=== PATIENT | female | born 1955 ===

== ENCOUNTER → 2016-09-09 | Outpatient (CLI) | payer BC ==
--- NOTE | 2016-09-10 13:57 | MM ---
Reason for exam: screening (asymptomatic). Last mammogram was performed 4 years and 2 months ago. History: Patient is postmenopausal and is nulliparous. Taking estrogen for 9 years 6 months beginning at age 53. Taking progesterone for 9 years 6 months beginning at age 53. Physical Findings: A clinical breast exam by your physician is recommended on an annual basis and results should be correlated with mammographic findings. MG Screening Mammo w CAD Bilateral CC and MLO view(s) were taken. Prior study comparison: June 28, 2012, bilateral digital screening mammo w/CAD. May 02, 2010, bilateral digital screening mammogram. The breast tissue is heterogeneously dense. This may lower the sensitivity of mammography. No significant changes when compared with prior studies. ASSESSMENT: Negative, BI-RAD 1 RECOMMENDATION: Routine screening mammogram of both breasts in 1 year.
== END | disposition home or self-care (01) ==
LOC: RADMAMWWP 16:00
PROVIDERS: ATTEND Obstetrics & Gynecology
DX: Z12.31 Encounter for screening mammogram for malignant neoplasm of breast (principal)

== ENCOUNTER 2019-10-07 02:16 | Emergency (ER) | payer BC ==
[2019-10-07 02:23] VITALS: BP 137/73; PULSE 67; RESP 16; TEMP 98.7
[2019-10-07] MEDS ORDERED: MORPHINE SULFATE 4 MG/ML SYRINGE IV STA (02:30)
[2019-10-07] MEDS ORDERED: PANTOPRAZOLE 40 MG/10 ML VIAL IVP STA (02:30)
[2019-10-07] MEDS ORDERED: SODIUM CHLORIDE 0.9% 1,000 ML IV STA (02:30)
[2019-10-07] MEDS ORDERED: ONDANSETRON 4 MG/2 ML VIAL IVP STA (02:30)
--- NOTE | 2019-10-07 02:30 | ED ---
Abdominal Pain HPI - General Chief Complaint: Abdominal Pain Stated Complaint: Abdominal Pain, Nausea Time Seen by Provider: 10/07/19 02:22 Source: patient, EMS, RN notes reviewed, old records reviewed Mode of arrival: EMS Limitations: no limitations - History of Present Illness Initial Comments: This is a 64-year-old female DF for evaluation. Patient admits to severe suprapubic abdominal pain periumbilical abdominal pain although improved currently mild nausea no vomiting no fevers. She denies any dysuria or change in bowel habits. Not taking medication for pain. The symptoms woke her up from sleep she felt very bloated with the severe abdominal pain but states the pain appears to be improved currently here in the ER not requiring anything currently MD Complaint: abdominal pain -: hour(s) Location: diffuse, suprapubic Radiation: suprapubic Migration to: suprapubic Severity: severe Severity scale (1-10): 6 Quality: cramping, aching Consistency: constant Improves With: nothing Worsens With: nothing Context: possible food poisoning Associated Symptoms: nausea, diarrhea - Related Data Previous Rx's Medication Instructions Recorded Nitrofurantoin Monohyd/M-Cryst 100 mg PO Q12HR #10 cap 10/07/19 [Macrobid] Allergies Allergy/AdvReac Type Severity Reaction Status Date / Time codeine AdvReac Vomiting Verified 10/07/19 02:26 Review of Systems ROS Statement: Those systems with pertinent positive or pertinent negative responses have been documented in the HPI. ROS Other: All systems not noted in ROS Statement are negative. Past Medical History Past Medical History: No Reported History History of Any Multi-Drug Resistant Organisms: None Reported Past Surgical History: Appendectomy, Hysterectomy Smoking Status: Never smoker Past Alcohol Use History: Rare Past Drug Use History: None Reported General Exam Limitations: no limitations General appearance: alert, in no apparent distress Head exam: Present: atraumatic, normocephalic, normal inspection Eye exam: Present: normal appearance, PERRL, EOMI. Absent: scleral icterus, conjunctival injection, periorbital swelling ENT exam: Present: normal exam, mucous membranes moist Neck exam: Present: normal inspection. Absent: tenderness, meningismus, lymphadenopathy Respiratory exam: Present: normal lung sounds bilaterally. Absent: respiratory distress, wheezes, rales, rhonchi, stridor Cardiovascular Exam: Present: regular rate, normal rhythm, normal heart sounds. Absent: systolic murmur, diastolic murmur, rubs, gallop, clicks GI/Abdominal exam: Present: soft, normal bowel sounds. Absent: distended, tenderness, guarding, rebound, rigid Extremities exam: Present: normal inspection, full ROM, normal capillary refill. Absent: tenderness, pedal edema, joint swelling, calf tenderness Back exam: Present: normal inspection Neurological exam: Present: alert, oriented X3, CN II-XII intact Psychiatric exam: Present: normal affect, normal mood Skin exam: Present: warm, dry, intact, normal color. Absent: rash Course Vital Signs 10/07/19 10/07/19 02:18 04:19 Temperature 98.7 F 98.7 F Pulse Rate 67 67 Respiratory 16 16 Rate Blood Pressure 137/73 137/73 O2 Sat by Pulse 99 99 Oximetry - Reevaluation(s) Reevaluation #1: Medical record is reviewed Patient remains with pain control Patient explained results, urinary tract infection, given antibiotics here in the ER which she tolerated oral he Medical Decision Making - Medical Decision Making 64 female DF for evaluation of abdominal pain CT is negative lab work is normal aside from urinary tract infection will treat with antibiotics which she is t olerating patient can be discharged home - Lab Data Result diagrams: 10/07/19 02:30 10/07/19 02:30 Lab Results 10/07/19 10/07/19 10/07/19 Range/Units 02:30 02:30 02:30 WBC 4.7 (3.8-10.6) k/uL RBC 4.52 (3.80-5.40) m/uL Hgb 13.9 (11.4-16.0) gm/dL Hct 42.6 (34.0-46.0) % MCV 94.3 (80.0-100.0) fL MCH 30.9 (25.0-35.0) pg MCHC 32.8 (31.0-37.0) g/dL RDW 12.8 (11.5-15.5) % Plt Count 189 (150-450) k/uL Neutrophils % 51 % Lymphocytes % 39 % Monocytes % 5 % Eosinophils % 2 % Basophils % 1 % Neutrophils # 2.4 (1.3-7.7) k/uL Lymphocytes # 1.9 (1.0-4.8) k/uL Monocytes # 0.3 (0-1.0) k/uL Eosinophils # 0.1 (0-0.7) k/uL Basophils # 0.0 (0-0.2) k/uL Sodium 137 (137-145) mmol/L Potassium 3.8 (3.5-5.1) mmol/L Chloride 107 (98-107) mmol/L Carbon Dioxide 26 (22-30) mmol/L Anion Gap 4 mmol/L BUN 25 H (7-17) mg/dL Creatinine 0.64 (0.52-1.04) mg/dL Est GFR (CKD-EPI)AfAm >90 (>60 ml/min/1.73 sqM) Est GFR (CKD-EPI)NonAf >90 (>60 ml/min/1.73 sqM) Glucose 102 H (74-99) mg/dL Plasma Lactic Acid Jamie 0.8 (0.7-2.0) mmol/L Calcium 8.9 (8.4-10.2) mg/dL Total Bilirubin 0.2 (0.2-1.3) mg/dL AST 24 (14-36) U/L ALT 15 (4-34) U/L Alkaline Phosphatase 53 (38-126) U/L Creatine Kinase 52 (30-135) U/L Troponin I (0.000-0.034) ng/mL Total Protein 6.8 (6.3-8.2) g/dL Albumin 4.2 (3.5-5.0) g/dL Amylase 85 (30-110) U/L Lipase 219 (23-300) U/L Urine Color Urine Appearance (Clear) Urine pH (5.0-8.0) Ur Specific [place] (1.001-1.035) Urine Protein (Negative) Urine Glucose (UA) (Negative) Urine Ketones (Negative) Urine Blood (Negative) Urine Nitrite (Negative) Urine Bilirubin (Negative) Urine Urobilinogen (<2.0) mg/dL Ur Leukocyte Esterase (Negative) Urine RBC (0-5) /hpf Urine WBC (0-5) /hpf Ur Squamous Epith Cells (0-4) /hpf Urine Bacteria (None) /hpf Urine Mucus (None) /hpf 10/07/19 10/07/19 Range/Units 02:30 03:37 WBC (3.8-10.6) k/uL RBC (3.80-5.40) m/uL Hgb (11.4-16.0) gm/dL Hct (34.0-46.0) % MCV (80.0-100.0) fL MCH (25.0-35.0) pg MCHC (31.0-37.0) g/dL RDW (11.5-15.5) % Plt Count (150-450) k/uL Neutrophils % % Lymphocytes % % Monocytes % % Eosinophils % % Basophils % % Neutrophils # (1.3-7.7) k/uL Lymphocytes # (1.0-4.8) k/uL Monocytes # (0-1.0) k/uL Eosinophils # (0-0.7) k/uL Basophils # (0-0.2) k/uL Sodium (137-145) mmol/L Potassium (3.5-5.1) mmol/L Chloride (98-107) mmol/L Carbon Dioxide (22-30) mmol/L Anion Gap mmol/L BUN (7-17) mg/dL Creatinine (0.52-1.04) mg/dL Est GFR (CKD-EPI)AfAm (>60 ml/min/1.73 sqM) Est GFR (CKD-EPI)NonAf (>60 ml/min/1.73 sqM) Glucose (74-99) mg/dL Plasma Lactic Acid Jamie (0.7-2.0) mmol/L Calcium (8.4-10.2) mg/dL Total Bilirubin (0.2-1.3) mg/dL AST (14-36) U/L ALT (4-34) U/L Alkaline Phosphatase (38-126) U/L Creatine Kinase (30-135) U/L Troponin I <0.012 (0.000-0.034) ng/mL Total Protein (6.3-8.2) g/dL Albumin (3.5-5.0) g/dL Amylase (30-110) U/L Lipase (23-300) U/L Urine Color Yellow Urine Appearance Cloudy H (Clear) Urine pH 6.0 (5.0-8.0) Ur Specific [place] 1.050 H (1.001-1.035) Urine Protein Trace H (Negative) Urine Glucose (UA) Negative (Negative) Urine Ketones Negative (Negative) Urine Blood Negative (Negative) Urine Nitrite Negative (Negative) Urine Bilirubin Negative (Negative) Urine Urobilinogen <2.0 (<2.0) mg/dL Ur Leukocyte Esterase Large H (Negative) Urine RBC 13 H (0-5) /hpf Urine WBC 124 H (0-5) /hpf Ur Squamous Epith Cells 17 H (0-4) /hpf Urine Bacteria Rare H (None) /hpf Urine Mucus Rare H (None) /hpf - EKG Data -: EKG Interpreted by Me (EKG shows sinus rhythm of 63 63, GA 140, QRS 80, QTC 407) - Radiology Data Radiology results: report reviewed (CT abdomen and pelvis is negative for acute disease), image reviewed Disposition Clinical Impression: Abdominal pain, UTI (urinary tract infection) Disposition: HOME SELF-CARE Condition: Good Instructions (If sedation given, give patient instructions): Urinary Tract Infection in Women (ED), Abdominal Pain (ED) Prescriptions: Nitrofurantoin Monohyd/M-Cryst [Macrobid] 100 mg PO Q12HR #10 cap Is patient prescribed a controlled substance at d/c from ED?: No Referrals: Guillermo Villanueva MD [Primary Care Provider] - 1-2 days
[2019-10-07 02:58] LABS: Basophils % (A) 1 %; Eosinophils # (A) 0.1 k/uL (0-0.7); Eosinophils % (A) 2 %; HCT 42.6 % (34.0-46.0); HGB 13.9 gm/dL (11.4-16.0); Lymphocytes # (A) 1.9 k/uL (1.0-4.8); Lymphocytes % (A) 39 %; MCH 30.9 pg (25.0-35.0); MCHC 32.8 g/dL (31.0-37.0); MCV 94.3 fL (80.0-100.0); Mean Platelet Volume 7.1; Monocytes # (A) 0.3 k/uL (0-1.0); Monocytes % (A) 5 %; Neutrophils # (A) 2.4 k/uL (1.3-7.7); Neutrophils % (A) 51 %; Platelet Count 189 k/uL (150-450); RBC 4.52 m/uL (3.80-5.40); RDW 12.8 % (11.5-15.5); WBC 4.7 k/uL (3.8-10.6)
[2019-10-07 03:08] LABS: ALT 15 U/L (4-34); AST 24 U/L (14-36); African American GFR (CKD) >90 (>60 ml/min/1.73 sqM); Albumin 4.2 g/dL (3.5-5.0); Alkaline Phosphatase 53 U/L (38-126); Amylase 85 U/L (30-110); Anion Gap 4 mmol/L; Blood Urea Nitrogen 25 mg/dL (7-17); Calcium 8.9 mg/dL (8.4-10.2); Carbon Dioxide 26 mmol/L (22-30); Chloride 107 mmol/L (98-107); Creatine Kinase 52 U/L (30-135); Glucose 102 mg/dL (74-99); Non-African American GFR(CKD) >90 (>60 ml/min/1.73 sqM); Potassium 3.8 mmol/L (3.5-5.1); Sodium 137 mmol/L (137-145); Total Bilirubin 0.2 mg/dL (0.2-1.3); Total Protein 6.8 g/dL (6.3-8.2)
--- NOTE | 2019-10-07 03:17 | CT ---
EXAMINATION TYPE: CT abdomen pelvis w con DATE OF EXAM: 10/07/2019 COMPARISON: None HISTORY: Lower abdominal pain CT DLP: mGycm Automated exposure control for dose reduction was used. CONTRAST: The contrast was Isovue 100 mL IV. FINDINGS: There is minimal subsegmental atelectasis at the right posterior lung base. Heart size is fairly norm al. There is no pericardial effusion. There is no pleural effusion. There is some heterogeneous enhan cement that measures 3 cm in the posterior right lobe of the liver consistent with hemangioma. The bi le ducts are not dilated. Gallbladder appears normal. Stomach is intact. Spleen appears normal. There is no pancreatic mass. There is no adrenal mass. Kidneys show satisfactory contrast opacification. There is no hydronephrosi s. Ureters are not dilated. There is no retroperitoneal adenopathy. Bladder distends smoothly. There is no evidence of a pelvic mass. There is 3.3 cm cyst in the pelvis on the left side that is probably ovarian cyst. There is no inguinal hernia. There is no mesenteric edema. There is no ascites or free air. There is no evidence of a bowel obstru ction. Appendix is not definitely seen. There is no sign of thickened appendix. There is some retaine d fecal material in the large bowel. Lumbar vertebra have normal alignment. Disc spaces are normal. Bony pelvis is intact. IMPRESSION: Mild constipation. Hemangioma in the posterior right lobe of the liver. Appendix not definitely seen.
[2019-10-07 03:49] LABS: Appearance,Urine Cloudy (Clear); Bacteria,Urine Rare /hpf; Bilirubin,Urine Negative (Negative); Blood,Urine Negative (Negative); Color,Urine Yellow; Glucose,Urine (UA) Negative (Negative); Ketones,Urine Negative (Negative); Leukocyte Esterase,Urine Large (Negative); Mucus,Urine Rare /hpf; Nitrite,Urine Negative (Negative); Protein,Urine Trace (Negative); RBC,Urine 13 /hpf (0-5); Squamous Epithelial Cell,Urine 17 /hpf (0-4); Urobilinogen,Urine <2.0 mg/dL (<2.0); WBC,Urine 124 /hpf (0-5)
[2019-10-07] MEDS ORDERED: NITROFURANTOIN MONOHYD/M-CRYST 100 MG CAP PO STA (04:22)
== END 2019-10-07 04:27 | disposition home or self-care (01) ==
LOC: EC 02:16
DX: N39.0 Urinary tract infection, site not specified (principal); Z88.5 Allergy status to narcotic agent
CPT/HCPCS: 36415; 80053; 82150; 82550; 83605; 83690; 84484; 85025; 81001; 87086; 74177; 99285; 96374; 96375; 96361; J2405; C9113; Q9967; 87077; 87186

== ENCOUNTER 2020-08-08 10:45 | Emergency (ER) | payer BC ==
[2020-08-08 10:50] VITALS: TEMP 98
[2020-08-08] MEDS ORDERED: HYDROmorphone 0.5 MG/0.5 ML SYRINGE IVP STA (11:20)
[2020-08-08] MEDS ORDERED: SODIUM CHLORIDE 0.9% 1,000 ML IV STA (11:20)
[2020-08-08] MEDS ORDERED: ONDANSETRON 4 MG/2 ML VIAL IVP STA (11:20)
[2020-08-08] MEDS ORDERED: SODIUM CHLORIDE 0.9% 500 ML 500 ML IV STA (11:20)
--- NOTE | 2020-08-08 11:34 | ED ---
Abdominal Pain HPI - General Source: patient, family Mode of arrival: wheelchair Limitations: no limitations <Radha Trejo - Last Filed: 08/08/20 15:16> <Carol Barfield - Last Filed: 08/11/20 20:17> - General Chief Complaint: Abdominal Pain Stated Complaint: Abd pain Time Seen by Provider: 08/08/20 11:04 - History of Present Illness Initial Comments: 65 year feel presents today for chief complaint of right upper quadrant pain since midnight. Patient states she has had right upper quadrant abdominal pain that radiates towards the epigastric region. She states that she has some nausea/dry heaving. Denies chest pressure. Denies radiation to the back. Denies dyspnea, pain with deep inspiration, jaw or arm pain.. Charlene dark or bloody stools. Patient states the area hurts to touch and causes her to double over. Patient denies diarrhea. Denies fevers. Admits to general malaise Patihoman states she saw her pCP today who sent her here to r/o gallbladder disease. Patient on arrival does not appear in distress. Afebrile. (Radha Trejo) - Related Data Home Medications Medication Instructions Recorded Confirmed Latanoprost/Pf [Latanoprost 0.005% 1 drop LEFT EYE HS 08/08/20 08/08/20 Eye Drop] Sodium Chloride 5% Ophth Soln 1 drops BOTH EYES HS 08/08/20 08/08/20 [Simona 128] Previous Rx's Medication Instructions Recorded Ondansetron Odt [Zofran Odt] 4 mg PO Q8HR PRN 7 Days #21 tab 08/08/20 Pantoprazole Sodium [Protonix] 40 mg PO DAILY 7 Days #7 tablet. 08/08/20 Sucralfate [Carafate] 1 gm PO AC-TID 7 Days #21 tablet 08/08/20 Allergies Allergy/AdvReac Type Severity Reaction Status Date / Time codeine AdvReac Vomiting Verified 08/08/20 11:57 Review of Systems ROS Other: All systems not noted in ROS Statement are negative. <Radha Trejo - Last Filed: 08/08/20 15:16> ROS Other: All systems not noted in ROS Statement are negative. <Carol Barfield - Last Filed: 08/11/20 20:17> ROS Statement: Those systems with pertinent positive or pertinent negative responses have been documented in the HPI. Past Medical History Past Medical History: No Reported History History of Any Multi-Drug Resistant Organisms: None Reported Past Surgical History: Appendectomy, Hysterectomy Smoking Status: Never smoker Past Alcohol Use History: Rare Past Drug Use History: None Reported <Radha Trejo - Last Filed: 08/08/20 15:16> General Exam Limitations: no limitations <Radha Trejo - Last Filed: 08/08/20 15:16> - General Exam Comments Initial Comments: General: The patient is awake and alert, in no distress Eye: +3 mm pupils are equal, round and reactive to light, extra-ocular movements are intact. No nystagmus. There is normal conjunctiva bilaterally. No signs of icterus. Ears, nose, mouth and throat: There are moist mucous membranes and no oral lesions. Neck: The neck is supple, there is no tenderness or JVD. Cardiovascular: There is a regular rate and rhythm. No murmur, rub or gallop is appreciated. Respiratory: Lungs are clear to auscultation, respirations are non-labored, breath sounds are equal. No wheezes, stridor, rales, or rhonchi. Gastrointestinal: Soft, non-distended, ruq/epigastric tenderness, (-) murphys sign. abdomen without masses or organomegaly noted. There is no rebound or guarding present. Musculoskeletal: Normal ROM, no tenderness. Strength 5/5. Sensation intact. Radial pulses equal bilaterally 2+. Neurological: A&O x 3. CN II-XII intact grossly, There are no obvious motor or sensory deficits. Coordination appears grossly intact. Speech is normal. Skin: Skin is warm and dry and no rashes or lesions are noted. Psychiatric: Cooperative, appropriate mood & affect, normal judgment. (Radha Trejo) Course Vital Signs 08/08/20 08/08/20 10:48 15:03 Temperature 98.0 F Pulse Rate 57 L 62 Respiratory 16 18 Rate Blood Pressure 120/78 124/80 O2 Sat by Pulse 100 98 Oximetry Medical Decision Making - Lab Data Result diagrams: 08/08/20 11:52 08/08/20 11:52 <Radha Terjo - Last Filed: 08/08/20 15:16> - Lab Data Result diagrams: 08/08/20 11:52 08/08/20 11:52 <Carol Barfield - Last Filed: 08/11/20 20:17> - Medical Decision Making Labs/HgB stable. US no gallstones. hemnagioma noted. CT findings most cosistent wtih gastritis/enteritis/cannto r/o PUD. pt givne protonix/GI cocktail. Patient does not appear peritoneal. Pain improved after medications. patient findings on CT/US were dicussing including the left ovarian cyst and hemangioma and i recommend f/u with [facility] and GI for both respectively. Patient agreeable to discharge with GI f/u and return for worsening pain. Dr. Barfield agreeable to care plan. (Radha Trejo) I was available for consultation in the emergency department. The history and p hysical exam were done by the midlevel provider. I was consulted for this patients care. I reviewed the case with the midlevel provider and based on their presentation of the patient, I agree with the assessment, medical decision making and plan of care as documented. Chart was dictated using [employer] dictation software. Attempts were made to correct any dictation errors however some typographical errors may persist. Patient was seen during a national state of emergency due to the Covid-19 fuller demic. (Carol Barfield) - Lab Data Lab Results 08/08/20 08/08/20 08/08/20 Range/Units 11:52 11:52 11:52 WBC 9.0 (3.8-10.6) k/uL RBC 4.72 (3.80-5.40) m/uL Hgb 14.6 (11.4-16.0) gm/dL Hct 44.1 (34.0-46.0) % MCV 93.5 (80.0-100.0) fL MCH 31.0 (25.0-35.0) pg MCHC 33.2 (31.0-37.0) g/dL RDW 13.4 (11.5-15.5) % Plt Count 290 (150-450) k/uL MPV 7.4 Neutrophils % 88 % Lymphocytes % 9 % Monocytes % 2 % Eosinophils % 0 % Basophils % 0 % Neutrophils # 7.9 H (1.3-7.7) k/uL Lymphocytes # 0.8 L (1.0-4.8) k/uL Monocytes # 0.2 (0-1.0) k/uL Eosinophils # 0.0 (0-0.7) k/uL Basophils # 0.0 (0-0.2) k/uL Sodium 137 (137-145) mmol/L Potassium 5.0 (3.5-5.1) mmol/L Chloride 102 (98-107) mmol/L Carbon Dioxide 22 (22-30) mmol/L Anion Gap 13 mmol/L BUN 18 H (7-17) mg/dL Creatinine 0.59 (0.52-1.04) mg/dL Est GFR (CKD-EPI)AfAm >90 (>60 ml/min/1.73 sqM) Est GFR (CKD-EPI)NonAf >90 (>60 ml/min/1.73 sqM) Glucose 108 H (74-99) mg/dL Calcium 10.1 (8.4-10.2) mg/dL Total Bilirubin 1.3 (0.2-1.3) mg/dL AST 58 H (14-36) U/L ALT 38 H (4-34) U/L Alkaline Phosphatase 67 (38-126) U/L Troponin I (0.000-0.034) ng/mL Total Protein 8.8 H (6.3-8.2) g/dL Albumin 5.3 H (3.5-5.0) g/dL Amylase 96 (30-110) U/L Lipase 138 (23-300) U/L Urine Color Yellow Urine Appearance Clear (Clear) Urine pH 5.5 (5.0-8.0) Ur Specific [place] 1.038 H (1.001-1.035) Urine Protein 1+ H (Negative) Urine Glucose (UA) Negative (Negative) Urine Ketones 4+ H (Negative) Urine Blood Negative (Negative) Urine Nitrite Negative (Negative) Urine Bilirubin Negative (Negative) Urine Urobilinogen <2.0 (<2.0) mg/dL Ur Leukocyte Esterase Negative (Negative) Urine RBC 4 (0-5) /hpf Urine WBC 2 (0-5) /hpf Ur Squamous Epith Cells 1 (0-4) /hpf Urine Mucus Many H (None) /hpf 02/18/21 Range/Units 11:52 WBC (3.8-10.6) k/uL RBC (3.80-5.40) m/uL Hgb (11.4-16.0) gm/dL Hct (34.0-46.0) % MCV (80.0-100.0) fL MCH (25.0-35.0) pg MCHC (31.0-37.0) g/dL RDW (11.5-15.5) % Plt Count (150-450) k/uL MPV Neutrophils % % Lymphocytes % % Monocytes % % Eosinophils % % Basophils % % Neutrophils # (1.3-7.7) k/uL Lymphocytes # (1.0-4.8) k/uL Monocytes # (0-1.0) k/uL Eosinophils # (0-0.7) k/uL Basophils # (0-0.2) k/uL Sodium (137-145) mmol/L Potassium (3.5-5.1) mmol/L Chloride (98-107) mmol/L Carbon Dioxide (22-30) mmol/L Anion Gap mmol/L BUN (7-17) mg/dL Creatinine (0.52-1.04) mg/dL Est GFR (CKD-EPI)AfAm (>60 ml/min/1.73 sqM) Est GFR (CKD-EPI)NonAf (>60 ml/min/1.73 sqM) Glucose (74-99) mg/dL Calcium (8.4-10.2) mg/dL Total Bilirubin (0.2-1.3) mg/dL AST (14-36) U/L ALT (4-34) U/L Alkaline Phosphatase (38-126) U/L Troponin I <0.012 (0.000-0.034) ng/mL Total Protein (6.3-8.2) g/dL Albumin (3.5-5.0) g/dL Amylase (30-110) U/L Lipase (23-300) U/L Urine Color Urine Appearance (Clear) Urine pH (5.0-8.0) Ur Specific [place] (1.001-1.035) Urine Protein (Negative) Urine Glucose (UA) (Negative) Urine Ketones (Negative) Urine Blood (Negative) Urine Nitrite (Negative) Urine Bilirubin (Negative) Urine Urobilinogen (<2.0) mg/dL Ur Leukocyte Esterase (Negative) Urine RBC (0-5) /hpf Urine WBC (0-5) /hpf Ur Squamous Epith Cells (0-4) /hpf Urine Mucus (None) /hpf Disposition Is patient prescribed a controlled substance at d/c from ED?: No Time of Disposition: 13:58 <Radha Trejo - Last Filed: 08/08/20 15:16> <Carol Barfield Jacinto - Last Filed: 08/11/20 20:17> Clinical Impression: Peptic ulcer disease, Enteritis Disposition: HOME SELF-CARE Condition: Good Instructions (If sedation given, give patient instructions): Peptic Ulcer (ED), Gastritis (ED) Additional Instructions: Please use medication as discussed. Please follow-up with family doctor in the next 2 days. Please return to emergency room if the symptoms increase or worsen or for any other concerns. Prescriptions: Sucralfate [Carafate] 1 gm PO AC-TID 7 Days #21 tablet Pantoprazole Sodium [Protonix] 40 mg PO DAILY 7 Days #7 tablet. Ondansetron Odt [Zofran Odt] 4 mg PO Q8HR PRN 7 Days #21 tab PRN Reason: Nausea Referrals: Guillermo Villanueva MD [Primary Care Provider] - 1-2 days Rivas Nguyen MD [STAFF PHYSICIAN] - 1-2 days
[2020-08-08 12:23] LABS: Basophils % (A) 0 %; Eosinophils % (A) 0 %; HCT 44.1 % (34.0-46.0); HGB 14.6 gm/dL (11.4-16.0); Lymphocytes # (A) 0.8 k/uL (1.0-4.8); Lymphocytes % (A) 9 %; MCHC 33.2 g/dL (31.0-37.0); MCV 93.5 fL (80.0-100.0); Mean Platelet Volume 7.4; Monocytes # (A) 0.2 k/uL (0-1.0); Monocytes % (A) 2 %; Neutrophils # (A) 7.9 k/uL (1.3-7.7); Neutrophils % (A) 88 %; Platelet Count 290 k/uL (150-450); RBC 4.72 m/uL (3.80-5.40); RDW 13.4 % (11.5-15.5)
[2020-08-08 12:30] LABS: Appearance,Urine Clear (Clear); Bilirubin,Urine Negative (Negative); Blood,Urine Negative (Negative); Color,Urine Yellow; Glucose,Urine (UA) Negative (Negative); Ketones,Urine 4+ (Negative); Leukocyte Esterase,Urine Negative (Negative); Mucus,Urine Many /hpf; Nitrite,Urine Negative (Negative); PH, Urine 5.5 (5.0-8.0); Protein,Urine 1+ (Negative); RBC,Urine 4 /hpf (0-5); Specific Gravity,Urine 1.038 (1.001-1.035); Squamous Epithelial Cell,Urine 1 /hpf (0-4); Urobilinogen,Urine <2.0 mg/dL (<2.0); WBC,Urine 2 /hpf (0-5)
--- NOTE | 2020-08-08 12:36 | US ---
EXAMINATION TYPE: US abdomen limited DATE OF EXAM: 08/08/2020 COMPARISON: CT 08/08/20 CLINICAL HISTORY: RUQ/epigastric pain. severe RUQ pain since this am. EXAM MEASUREMENTS: Liver Length: 13.2 cm Gallbladder Wall: 0.1 cm CBD: 0.4 cm Right Kidney: 11.0 x 4.9 x 4.0 cm Pancreas: No pathology seen Liver: 2 hyperechoic areas in liver ? hemangiomas: 1) 1.3 x 1.3 x 1.0 cm 2) 2.4 x 2.0 x 1.9 cm Gallbladder: No stones seen Evidence for sonographic Alvarez's sign: No CBD: wnl Right Kidney: No hydronephrosis or masses seen IMPRESSION: 1. Hyperechoic hepatic lesions are compatible with previous ultrasound suggestive of hemangioma.
[2020-08-08 12:38] LABS: ALT 38 U/L (4-34); AST 58 U/L (14-36); African American GFR (CKD) >90 (>60 ml/min/1.73 sqM); Albumin 5.3 g/dL (3.5-5.0); Alkaline Phosphatase 67 U/L (38-126); Amylase 96 U/L (30-110); Anion Gap 13 mmol/L; Blood Urea Nitrogen 18 mg/dL (7-17); Calcium 10.1 mg/dL (8.4-10.2); Carbon Dioxide 22 mmol/L (22-30); Chloride 102 mmol/L (98-107); Glucose 108 mg/dL (74-99); Lipase 138 U/L (23-300); Non-African American GFR(CKD) >90 (>60 ml/min/1.73 sqM); Sodium 137 mmol/L (137-145); Total Bilirubin 1.3 mg/dL (0.2-1.3); Total Protein 8.8 g/dL (6.3-8.2)
--- NOTE | 2020-08-08 13:20 | CT ---
EXAMINATION TYPE: CT abdomen pelvis w con DATE OF EXAM: 08/08/2020 COMPARISON: Noncontrast study from earlier in the day. HISTORY: epigastric pain CT DLP: 487.5 mGycm CONTRAST: CT scan of the abdomen and pelvis is performed without Oral Contrast and with IV Contrast, patient in jected with 100 mL of Isovue 300. FINDINGS: LUNG BASES-: No visible nodule. No infiltrate. LIVER/GB: No calcified gallstones. No space occupying hepatic lesion. Biliary tree is of normal ca liber. PANCREAS: No inflammation. No distinct mass. SPLEEN: No splenic enlargement. No lesion seen. ADRENALS: No nodule. No thickening. KIDNEYS/BLADDER: No hydronephrosis. No nephrolithiasis. No distinct renal mass. Urinary bladder g rossly unremarkable. BOWEL: There is a small amount of free fluid within the lesser sac adjacent to the greater gastric cu rvature. There is a wall thickening of the gastric antrum which could reflect underlying gastritis or ulcer disease. Correlate clinically. I do not see evidence for perforation at this time. There is al so wall thickening involving the small bowel which may reflect enteritis. Poor visualization of the a ppendix. GENITAL ORGANS: Left ovarian cystic lesion is redemonstrated measuring 3.4 cm. LYMPH NODES: No greater than 1cm abdominal or pelvic lymph nodes are appreciated. AORTA: No significant abnormality. OSSEOUS STRUCTURES: No significant abnormality is seen. OTHER: No significant additional abnormality is seen. IMPRESSION: 1. There is a small amount of free fluid within the lesser sac adjacent to the greater gastric curvat ure. There is a wall thickening of the gastric antrum which could reflect underlying gastritis or ulc er disease. Correlate clinically. 2. Correlate for small bowel enteritis. 3. Left ovarian cystic lesion.
[2020-08-08] MEDS ORDERED: PANTOPRAZOLE 40 MG/10 ML VIAL IVP STA (13:30)
[2020-08-08] MEDS ORDERED: MAG HYDROX/AL HYDROX/SIMETH 30 ML, HYOSCYAMINE ELIXIR 10 ML, LIDOCAINE VISCOUS 2% 10 ML PO STA ×3 (13:57)
[2020-08-08] MEDS ORDERED: ACET/COD 300 MG/30 MG STARTER PACK 6 TAB BTL PO STA (14:31)
[2020-08-08 15:04] VITALS: BP 124/80; PULSE 62; RESP 18
== END 2020-08-08 15:04 | disposition home or self-care (01) ==
LOC: EC 10:45
DX: K27.9 Peptic ulcer, site unspecified, unspecified as acute or chronic, without hemorrhage or perforation (principal); K52.9 Noninfective gastroenteritis and colitis, unspecified; N83.202 Unspecified ovarian cyst, left side; Z79.899 Other long term (current) drug therapy; Z88.5 Allergy status to narcotic agent; Z90.89 Acquired absence of other organs; Z90.710 Acquired absence of both cervix and uterus
CPT/HCPCS: 36415; 80053; 82150; 83690; 84484; 85025; 81001; 76705; 74177; 99284; 96374; 96375 ×2; 96361 ×3; J2405; C9113; J1170; Q9967

== ENCOUNTER → 2020-08-08 | Outpatient (CLI) | payer BC ==
--- NOTE | 2020-08-08 10:43 | CT ---
EXAMINATION TYPE: CT abdomen pelvis wo con DATE OF EXAM: 08/08/2020 COMPARISON: 10/07/2019 HISTORY: Abdominal pain CT DLP: 418 mGycm Automated exposure control for dose reduction was used. TECHNIQUE: Helical acquisition of images was performed from the lung bases through the pelvis. FINDINGS: LUNG BASES: No significant abnormality is appreciated. LIVER/GB: Multiple hepatic lesions are indeterminate by noncontrast technique but at least 2 of which appear to be related to hemangioma based on prior CT scan appear to be stable relative to the prior exam in size. PANCREAS: No significant abnormality is seen. SPLEEN: No significant abnormality is seen. ADRENALS: No significant abnormality is seen. KIDNEYS: No significant abnormality is seen. ADENOPATHY: None visualized. OSSEOUS STRUCTURES: No significant abnormality is seen. BOWEL: Bowel gas pattern nonspecific with extensive retained debris correlate for constipation. Appe ndix not seen exam nondiagnostic for appendicitis. OTHER: There is a left adnexal cyst measuring 3.6 cm and similar in size relative to the prior exam. Small amount of fluid in the right pelvis is incidentally noted. Congenital IVC anomaly again noted. IMPRESSION: 1. Correlate for constipation. Appendix not visualized. Exam nondiagnostic for appendicitis. 2. Stable hepatic lesions 3. Mild thickening of the gastric antral wall could be related to incomplete distention. Correlate to exclude gastritis or peptic ulcer disease. Correlation with direct visualization could BE obtained a s clinically warranted. 4. Trace amount of free fluid in the pelvis with a stable appearing 3.6 cm cystic mass left adnexa wh ich could be correlated with ultrasound. Findings suggest previous hysterectomy. 5. Stable congenital IVC anomaly
== END | disposition home or self-care (01) ==
LOC: RADCTMAIN 09:52
PROVIDERS: ATTEND Family Medicine
DX: K76.9 Liver disease, unspecified (principal); Q26.9 Congenital malformation of great vein, unspecified; R93.3 Abnormal findings on diagnostic imaging of other parts of digestive tract
CPT/HCPCS: 74176

== ENCOUNTER → 2021-05-07 | Outpatient (CLI) | payer OTHER ==
[2021-05-07 14:44] LABS: HCT 45.5 % (34.0-46.0); HGB 15.1 gm/dL (11.4-16.0); MCH 31.7 pg (25.0-35.0); MCHC 33.3 g/dL (31.0-37.0); MCV 95.2 fL (80.0-100.0); Platelet Count 234 k/uL (150-450); RBC 4.78 m/uL (3.80-5.40); RDW 12.5 % (11.5-15.5); WBC 5.6 k/uL (3.8-10.6)
[2021-05-07 14:52] LABS: African American GFR (CKD) >90 (>60 ml/min/1.73 sqM); Blood Urea Nitrogen 18 mg/dL (7-17); Non-African American GFR(CKD) >90 (>60 ml/min/1.73 sqM)
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
== END | disposition home or self-care (01) ==
LOC: RADCTMAIN 12:35
PROVIDERS: ATTEND Family Medicine
DX: R10.32 Left lower quadrant pain (principal); V89.2XXA Person injured in unspecified motor-vehicle accident, traffic, initial encounter
CPT/HCPCS: 82565; 84520; 85027; 74177; 36415; Q9967

== ENCOUNTER → 2022-06-16 | Outpatient (CLI) | payer MEDICARE, OTHER ==
--- NOTE | 2022-06-16 15:50 | US ---
EXAMINATION TYPE: US pelvis complete transvag DATE OF EXAM: 06/16/2022 COMPARISON: CT 05/07/2021 CLINICAL HISTORY: 67-year-old female N83.209 UNSPECIFIED OVARIAN CYST, UNSPECIFIED SIDE. Follow up ov david cyst. Uterus removed, still has both ovaries TECHNIQUE: Transabdominal sonographic images of the pelvis were acquired. Transvaginal sonographic i mages were medically necessary to better assess the following anatomy: Ovaries Date of LMP: Unknown FINDINGS: EXAM MEASUREMENTS: Left Ovary: 3.9 x 2.7 x 2.5 cm 1. Uterus: Surgically absent 2. Endometrium: Surgically absent 3. Right Ovary: Obscured by overlying bowel gas 4. Left Ovary: Simple appearing cyst= 3.2 x 2.5 x 2.7 cm 5. Bilateral Adnexa: wnl 6. Posterior cul-de-sac: No free fluid IMPRESSION: 1. Status post hysterectomy. Unable to visualize the right ovary. 2. A simple cyst of the left ovary measuring 3.2 cm. This is measured at approximately 3.4 cm on 04/21, not significantly changed. For a postmenopausal female, recommend ongoing annual ultrasound s urveillance.
== END | disposition home or self-care (01) ==
LOC: RADUSWWP 14:40
PROVIDERS: ATTEND Family Medicine
DX: N83.292 Other ovarian cyst, left side (principal); Z90.710 Acquired absence of both cervix and uterus
CPT/HCPCS: 76830; 76856

== ENCOUNTER → 2022-06-17 | Outpatient (CLI) | payer MEDICARE, OTHER ==
--- NOTE | 2022-06-18 08:49 | MM ---
Reason for Exam: Screening (asymptomatic). Last mammogram was performed 5 year(s) and 9 month(s) ago. Patient History: Menarche at age 17. Patient has no children. Hysterectomy at age 42. Postmenopausal. Currently using Estrogen, beginning at age 53 for 9 years, 6 months. Currently using Progesterone, beginning at age 53 for 9 years, 6 months. Risk Values: Terrie 5 year model risk: 1.7%. NCI Lifetime model risk: 6.1%. Prior Study Comparison: 07/04/2007 Bilateral Screening Mammogram, [facility]. 07/14/2007 Right Diagnostic Mammogram, [facility]. 05/02/2010 Bilateral Screening Mammogram, [facility]. 06/28/2012 Bilateral Screening Mammogram, [facility]. 09/09/2016 Bilateral Screening Mammogram, [facility]. Tissue Density: The breast tissue is heterogeneously dense. This may lower the sensitivity of mammography. Findings: Analyzed By CAD. There is no suspicious group of microcalcifications or new suspicious mass in either breast. Overall Assessment: Negative, BI-RAD 1 Management: Screening Mammogram of both breasts in 1 year. A clinical breast exam by your physician is recommended on an annual basis and results should be correlated with mammographic findings. [facility] will attempt to contact patient to return for supplemental views and ultrasound if indicated. Electronically signed and approved by: Todd Watts DO
== END | disposition home or self-care (01) ==
LOC: RADMAMWWP 09:09
PROVIDERS: ATTEND Family Medicine
DX: Z12.31 Encounter for screening mammogram for malignant neoplasm of breast (principal); Z78.0 Asymptomatic menopausal state
CPT/HCPCS: 77063; 77067

== ENCOUNTER → 2023-08-30 | Outpatient (CLI) | payer MEDICARE ==
--- NOTE | 2023-08-31 14:07 | MM ---
Reason for Exam: Screening (asymptomatic). Last mammogram was performed 1 year(s) and 3 month(s) ago. Patient History: Menarche at age 17. Patient has no children. Hysterectomy at age 42. Postmenopausal. Currently using Estrogen, beginning at age 53 for 9 years, 6 months. Currently using Progesterone, beginning at age 53 for 9 years, 6 months. Risk Values: Terrie 5 year model risk: 1.7%. NCI Lifetime model risk: 5.9%. Prior Study Comparison: 06/28/2012 Bilateral Screening Mammogram, [facility]. 09/09/2016 Bilateral Screening Mammogram, [facility]. 06/17/2022 Bilateral MG 3D screening mammo w/cad, [facility]. Tissue Density: There are scattered areas of fibroglandular density. Findings: Analyzed By CAD. There is no suspicious group of microcalcifications or new suspicious mass. Benign-appearing calcifications right breast. Overall Assessment: Benign, BI-RAD 2 Management: Screening Mammogram of both breasts in [address] [facility] will attempt to contact patient to return for supplemental views and ultrasound if indicated. Patient should continue monthly self-breast exams. A clinical breast exam by your physician is recommended on an annual basis. This exam should not preclude additional follow-up of suspicious palpable abnormalities. Note on Terrie scores and lifetime risk: 1. A Terrie score greater than 3% is considered moderate risk. If this is the case, consider specialist referral to assess eligibility for a risk reducing agent. 2. If overall lifetime risk for the development of breast cancer is 20% or higher, the patient may qualify for future screening with alternating mammogram and breast MRI. Electronically signed and approved by: Todd Watts DO
== END | disposition home or self-care (01) ==
LOC: RADMAMWWP 09:33
PROVIDERS: ATTEND Family Medicine
DX: Z12.31 Encounter for screening mammogram for malignant neoplasm of breast (principal); Z78.0 Asymptomatic menopausal state
CPT/HCPCS: 77063; 77067

== ENCOUNTER 2024-12-23 15:10 | Inpatient (IN) | payer MEDICARE, OTHER ==
--- NOTE | 2024-12-23 15:31 | ED ---
Altered Mental Status HPI - General Chief Complaint: Altered Mental Status Stated Complaint: Memory loss Time Seen by Provider: 12/23/24 15:14 Source: patient, RN notes reviewed, old records reviewed, Caregiver Mode of arrival: EMS Limitations: altered mental status - History of Present Illness Initial Comments: This is a 69-year-old female presenting under significant stress, patient was allegedly at the hospital earlier where her had a heart attack, patient keeps repeating her 's name but has been significant for is unable to remember current events unsure of how she got to the hospital unsure of how she got to the ER and again not sure of who called the ambulance to bring her here. Patient has no complaints aside from the confusion that she is experiencing the difficulty recalling events MD Complaint: altered mental status, confusion -: unknown Severity: severe Consistency of Symptoms: waxing and waning, getting worse Associated Symptoms: denies other symptoms Treatments Prior to Arrival: IV fluid, oxygen - Related Data Home Medications Medication Instructions Recorded Confirmed Rosuvastatin Calcium 5 mg PO DAILY 12/23/24 12/23/24 Previous Rx's Medication Instructions Recorded Losartan [Cozaar] 50 mg PO DAILY 30 Days #30 tab 12/25/24 Metoprolol Tartrate [Lopressor] 12.5 mg PO BID 30 Days #30 tab 12/25/24 amLODIPine [Norvasc] 5 mg PO DAILY 30 Days #30 tab 12/25/24 Allergies Allergy/AdvReac Type Severity Reaction Status Date / Time codeine AdvReac Vomiting Verified 12/23/24 16:44 Review of Systems ROS Statement: Those systems with pertinent positive or pertinent negative responses have been documented in the HPI. ROS Other: All systems not noted in ROS Statement are negative. Past Medical History Past Medical History: No Reported History History of Any Multi-Drug Resistant Organisms: None Reported Past Surgical History: Appendectomy, Hysterectomy Past Psychological History: Anxiety Smoking Status: Never smoker Past Alcohol Use History: Rare Past Drug Use History: None Reported General Exam - General Exam Comments Initial Comments: Nonfocal neurological exam NIH of 0 Limitations: altered mental status General appearance: alert, in no apparent distress Head exam: Present: atraumatic, normocephalic, normal inspection Eye exam: Present: normal appearance, PERRL, EOMI. Absent: scleral icterus, conjunctival injection, periorbital swelling ENT exam: Present: normal exam, mucous membranes moist Neck exam: Present: normal inspection. Absent: tenderness, meningismus, lymphadenopathy Respiratory exam: Present: normal lung sounds bilaterally. Absent: respiratory distress, wheezes, rales, rhonchi, stridor Cardiovascular Exam: Present: regular rate, normal rhythm, normal heart sounds. Absent: systolic murmur, diastolic murmur, rubs, gallop, clicks GI/Abdominal exam: Present: soft, normal bowel sounds. Absent: distended, tenderness, guarding, rebound, rigid Extremities exam: Present: normal inspection, full ROM, normal capillary refill. Absent: tenderness, pedal edema, joint swelling, calf tenderness Back exam: Present: normal inspection Neurological exam: Present: alert, oriented X3, CN II-XII intact Psychiatric exam: Present: normal affect, normal mood Skin exam: Present: warm, dry, intact, normal color. Absent: rash Course Vital Signs 12/23/24 12/23/24 12/23/24 15:13 15:30 16:35 Temperature 98.2 F Pulse Rate 88 82 75 Respiratory 18 18 18 Rate Blood Pressure 182/92 196/82 183/99 O2 Sat by Pulse 96 96 97 Oximetry 12/23/24 12/23/24 12/23/24 17:43 18:11 18:44 Temperature Pulse Rate 75 75 77 Respiratory 18 18 18 Rate Blood Pressure 175/95 154/95 173/94 O2 Sat by Pulse 98 95 96 Oximetry 12/23/24 12/23/24 12/24/24 21:09 23:53 04:30 Temperature Pulse Rate 72 70 57 L Respiratory 18 18 16 Rate Blood Pressure 161/89 149/83 153/87 O2 Sat by Pulse 97 100 97 Oximetry 12/24/24 12/24/24 12/24/24 07:05 09:24 11:28 Temperature Pulse Rate 61 54 L 59 L Respiratory 17 21 16 Rate Blood Pressure 159/89 197/95 176/85 O2 Sat by Pulse 96 96 97 Oximetry 12/24/24 12/24/24 14:00 16:27 Temperature Pulse Rate 54 L 58 L Respiratory 20 17 Rate Blood Pressure 176/82 183/87 O2 Sat by Pulse 98 98 Oximetry - Reevaluation(s) Reevaluation #1: 12/23/24 17:22 Medical records reviewed Reevaluation #2: 12/23/24 17:22 Patient's confusion is improving here in the ER son is at bedside currently Reevaluation #3: 12/23/24 17:22 Patient informed of results questions answered Reevaluation #4: Was pt. sent in by a medical professional or institution (JOSE Shields, [employer], urgent care, hospital, or snf...) When possible be specific @ -no Did you speak to anyone other than the patient for history (EMS, parent, family, police, friend...)? What history was obtained from this source @ -no Did you review nursing and triage notes (agree or disagree)? Why? @ -agree Are old charts reviewed (outside hosp., previous admission, EMS record, old EKG, old radiological studies, urgent care reports/EKG's, snf records)? Report findings @ -yes Differential Diagnosis (chest pain, altered mental status, abdominal pain women, abdominal pain men, vaginal bleeding, weakness, fever, dyspnea, syncope, headache, dizziness, GI bleed, back pain, seizure, CVA, palpatations, mental health, musculoskeletal)? @ -prior EKG interpreted by me (3pts min.). @ -yes X-rays interpreted by me (1pt min.). @ -yes negative for acute disease CT interpreted by me (1pt min.). @ -no U/S interpreted by me (1pt. min.). @ -no What testing was considered but not performed or refused? (CT, X-rays, U/S, labs)? Why? @ -none What meds were considered but not given or refused? Why? @ -none Did you discuss the management of the patient with other professionals (denise wagner i.e. JOSE Shields, [employer], lab, RT, psych nurse, mental health social worker, merchandise presentation associate, teacher, morals squad police officer, case monitor)? Give summary @ -no Was smoking cessation discussed for >3mins.? @ -no Was critical care preformed (if so, how long)? @ -yes31 Were there social determinants of health that impacted care today? How? (Homelessness, low income, unemployed, alcoholism, drug addiction, transportation, low edu. Level, literacy, decrease access to med. care, prison, rehab)? @ -none Was there de-escalation of care discussed even if they declined (Discuss DNR or withdrawal of care, Hospice)? DNR status @ -no What co-morbidities impacted this encounter? (DM, HTN, Smoking, COPD, CAD, Cancer, CVA, ARF, Chemo, Hep., AIDS, mental health diagnosis, sleep apnea, morbid obesity)? @ -none Was patient admitted / discharged? Hospital course, mention meds given and route, prescriptions, significant lab abnormalities, going to OR and other pertinent info. @ - 69 female under increased stress with some transient global amnesia, patient has normal CT scan elevated troponin here non-ST elevated DE recent stress had heart attack earlier today and is admitted to the hospital currently Admitted Undiagnosed new problem with uncertain prognosis? @ -no Drug Therapy requiring intensive monitoring for toxicity (Heparin, Nitro, Insulin, Cardizem)? @ -no Were any procedures done? @ -no Diagnosis/symptom? @ -Non-ST elevated DE Acute, or Chronic, or Acute on Chronic? @ -Acute Uncomplicated (without systemic symptoms) or Complicated (systemic symptoms)? @ -Complicated Side effects of treatment? @ -no Exacerbation, Progression, or Severe Exacerbation? @ -exacerbation Poses a threat to life or bodily function? How? (Chest pain, USA, DE, pneumonia, PE, COPD, DKA, ARF, appy, cholecystitis, CVA, Diverticulitis, Homicidal, Suicidal, threat to staff... and all critical care pts) @ -yes acute DE ACS Reevaluation #5: Differential Altered Mental Status: Hypoglycemia, DKA, hypercapnia, ETOH, overdose, CO poisoning, trauma, myxedema coma, HTN encephalopathy, infection, encephalitis, psychosis, intercranial hemorrhage, hepatic encephalopathy, meningitis, CVA, this is not meant to be an all-inclusive list - Consultations Consultation #1: Spoke with omar who agrees to admit this patient Medical Decision Making - Medical Decision Making 69 female under increased stress with some transient global amnesia, patient has normal CT scan elevated troponin here non-ST elevated DE recent stress had heart attack earlier today and is admitted to the hospital currently - Lab Data Result diagrams: 12/25/24 06:40 12/25/24 06:40 Lab Results 12/23/24 12/23/24 12/23/24 Range/Units 15:42 15:47 15:47 WBC 7.04 (4.50-10.00) 10*3/uL RBC 4.39 (4.10-5.20) 10*6/uL Hgb 13.7 (12.0-15.0) g/dL Hct 40.0 (37.2-46.3) % MCV 91.1 (80.0-97.0) fL MCH 31.2 (27.0-32.0) pg MCHC 34.3 (32.0-37.0) g/dL Plt Count 224 (140-440) 10*3/uL MPV 9.5 (9.5-12.2) fL Immature Gran % (Auto) 0.3 % Neutrophils % 71.5 % Lymphocytes % 20.7 % Monocytes % 6.5 % Eosinophils % 0.4 % Basophils % 0.6 % Immature Gran # 0.02 (0.00-0.04) 10*3/uL Neutrophils # 5.03 (1.80-7.70) 10*3/uL Lymphocytes # 1.46 (0.90-5.00) 10*3/uL Monocytes # 0.46 (0.20-1.00) 10*3/uL Eosinophils # 0.03 L (0.04-0.35) 10*3/uL Basophils # 0.04 (0.00-0.10) 10*3/uL PT 10.9 (10.0-12.5) sec INR 1.0 (<1.2) APTT 21.3 L (22.0-30.0) sec Sodium (137-145) mmol/L Potassium (3.5-5.1) mmol/L Chloride (98-107) mmol/L Carbon Dioxide (22-30) mmol/L Anion Gap mmol/L BUN (7-17) mg/dL Creatinine (0.52-1.04) mg/dL Est GFR (CKD-EPI)AfAm (>60 ml/min/1.73 sqM) Est GFR (CKD-EPI)NonAf (>60 ml/min/1.73 sqM) Glucose (74-99) mg/dL POC Glucose (mg/dL) 97 (70-110) mg/dL POC Glu Field Applications Specialist ID [facility] Calcium (8.4-10.2) mg/dL Phosphorus (2.5-4.5) mg/dL Magnesium (1.6-2.3) mg/dL Total Bilirubin (0.2-1.3) mg/dL AST (14-36) U/L ALT (4-34) U/L Alkaline Phosphatase (38-126) U/L Ammonia (<30) umol/L Troponin I (0.000-0.034) ng/mL Total Protein (6.3-8.2) g/dL Albumin (3.5-5.0) g/dL Urine Color Urine Appearance (Clear) Urine pH (5.0-8.0) Ur Specific [place] (1.001-1.035) Urine Protein (Negative) Urine Glucose (UA) (Negative) Urine Ketones (Negative) Urine Blood (Negative) Urine Nitrite (Negative) Urine Bilirubin (Negative) Urine Urobilinogen (<2.0) mg/dL Ur Leukocyte Esterase (Negative) Urine RBC (0-5) /hpf Urine WBC (0-5) /hpf Ur Squamous Epith Cells (0-4) /hpf Urine Mucus (None) /hpf Urine Opiates Screen (NotDetected) Ur Oxycodone Screen (NotDetected) Urine Methadone Screen (NotDetected) Ur Barbiturates Screen (NotDetected) U Tricyclic Antidepress (NotDetected) Ur Phencyclidine Scrn (NotDetected) Ur Amphetamines Screen (NotDetected) U Methamphetamines Scrn (NotDetected) U Benzodiazepines Scrn (NotDetected) Urine Cocaine Screen (NotDetected) U Marijuana (THC) Screen (NotDetected) Serum Alcohol mg/dL 12/23/24 12/23/24 12/23/24 Range/Units 15:47 15:47 15:47 WBC (4.50-10.00) 10*3/uL RBC (4.10-5.20) 10*6/uL Hgb (12.0-15.0) g/dL Hct (37.2-46.3) % MCV (80.0-97.0) fL MCH (27.0-32.0) pg MCHC (32.0-37.0) g/dL Plt Count (140-440) 10*3/uL MPV (9.5-12.2) fL Immature Gran % (Auto) % Neutrophils % % Lymphocytes % % Monocytes % % Eosinophils % % Basophils % % Immature Gran # (0.00-0.04) 10*3/uL Neutrophils # (1.80-7.70) 10*3/uL Lymphocytes # (0.90-5.00) 10*3/uL Monocytes # (0.20-1.00) 10*3/uL Eosinophils # (0.04-0.35) 10*3/uL Basophils # (0.00-0.10) 10*3/uL PT (10.0-12.5) sec INR (<1.2) APTT (22.0-30.0) sec Sodium 141 (137-145) mmol/L Potassium 3.9 (3.5-5.1) mmol/L Chloride 108 H (98-107) mmol/L Carbon Dioxide 21 L (22-30) mmol/L Anion Gap 12 mmol/L BUN 19 H (7-17) mg/dL Creatinine 0.64 (0.52-1.04) mg/dL Est GFR (CKD-EPI)AfAm >90 (>60 ml/min/1.73 sqM) Est GFR (CKD-EPI)NonAf >90 (>60 ml/min/1.73 sqM) Glucose 99 (74-99) mg/dL POC Glucose (mg/dL) (70-110) mg/dL POC Glu Field Applications Specialist ID Calcium 9.9 (8.4-10.2) mg/dL Phosphorus (2.5-4.5) mg/dL Magnesium (1.6-2.3) mg/dL Total Bilirubin 0.4 (0.2-1.3) mg/dL AST 27 (14-36) U/L ALT 17 (4-34) U/L Alkaline Phosphatase 70 (38-126) U/L Ammonia <9 (<30) umol/L Troponin I 0.088 H* (0.000-0.034) ng/mL Total Protein 7.1 (6.3-8.2) g/dL Albumin 4.3 (3.5-5.0) g/dL Urine Color Urine Appearance (Clear) Urine pH (5.0-8.0) Ur Specific [place] (1.001-1.035) Urine Protein (Negative) Urine Glucose (UA) (Negative) Urine Ketones (Negative) Urine Blood (Negative) Urine Nitrite (Negative) Urine Bilirubin (Negative) Urine Urobilinogen (<2.0) mg/dL Ur Leukocyte Esterase (Negative) Urine RBC (0-5) /hpf Urine WBC (0-5) /hpf Ur Squamous Epith Cells (0-4) /hpf Urine Mucus (None) /hpf Urine Opiates Screen (NotDetected) Ur Oxycodone Screen (NotDetected) Urine Methadone Screen (NotDetected) Ur Barbiturates Screen (NotDetected) U Tricyclic Antidepress (NotDetected) Ur Phencyclidine Scrn (NotDetected) Ur Amphetamines Screen (NotDetected) U Methamphetamines Scrn (NotDetected) U Benzodiazepines Scrn (NotDetected) Urine Cocaine Screen (NotDetected) U Marijuana (THC) Screen (NotDetected) Serum Alcohol <10 mg/dL 12/23/24 12/23/24 12/23/24 Range/Units 16:33 19:09 21:46 WBC (4.50-10.00) 10*3/uL RBC (4.10-5.20) 10*6/uL Hgb (12.0-15.0) g/dL Hct (37.2-46.3) % MCV (80.0-97.0) fL MCH (27.0-32.0) pg MCHC (32.0-37.0) g/dL Plt Count (140-440) 10*3/uL MPV (9.5-12.2) fL Immature Gran % (Auto) % Neutrophils % % Lymphocytes % % Monocytes % % Eosinophils % % Basophils % % Immature Gran # (0.00-0.04) 10*3/uL Neutrophils # (1.80-7.70) 10*3/uL Lymphocytes # (0.90-5.00) 10*3/uL Monocytes # (0.20-1.00) 10*3/uL Eosinophils # (0.04-0.35) 10*3/uL Basophils # (0.00-0.10) 10*3/uL PT (10.0-12.5) sec INR (<1.2) APTT (22.0-30.0) sec Sodium (137-145) mmol/L Potassium (3.5-5.1) mmol/L Chloride (98-107) mmol/L Carbon Dioxide (22-30) mmol/L Anion Gap mmol/L BUN (7-17) mg/dL Creatinine (0.52-1.04) mg/dL Est GFR (CKD-EPI)AfAm (>60 ml/min/1.73 sqM) Est GFR (CKD-EPI)NonAf (>60 ml/min/1.73 sqM) Glucose (74-99) mg/dL POC Glucose (mg/dL) (70-110) mg/dL POC Glu Field Applications Specialist ID Calcium (8.4-10.2) mg/dL Phosphorus (2.5-4.5) mg/dL Magnesium (1.6-2.3) mg/dL Total Bilirubin (0.2-1.3) mg/dL AST (14-36) U/L ALT (4-34) U/L Alkaline Phosphatase (38-126) U/L Ammonia (<30) umol/L Troponin I 0.093 H* 0.085 H* (0.000-0.034) ng/mL Total Protein (6.3-8.2) g/dL Albumin (3.5-5.0) g/dL Urine Color Colorless Urine Appearance Clear (Clear) Urine pH 5.5 (5.0-8.0) Ur Specific [place] 1.018 (1.001-1.035) Urine Protein Negative (Negative) Urine Glucose (UA) Negative (Negative) Urine Ketones 2+ H (Negative) Urine Blood Trace H (Negative) Urine Nitrite Negative (Negative) Urine Bilirubin Negative (Negative) Urine Urobilinogen <2.0 (<2.0) mg/dL Ur Leukocyte Esterase Negative (Negative) Urine RBC 3 (0-5) /hpf Urine WBC 1 (0-5) /hpf Ur Squamous Epith Cells <1 (0-4) /hpf Urine Mucus Rare H (None) /hpf Urine Opiates Screen Not Detected (NotDetected) Ur Oxycodone Screen Not Detected (NotDetected) Urine Methadone Screen Not Detected (NotDetected) Ur Barbiturates Screen Not Detected (NotDetected) U Tricyclic Antidepress Not Detected (NotDetected) Ur Phencyclidine Scrn Not Detected (NotDetected) Ur Amphetamines Screen Not Detected (NotDetected) U Methamphetamines Scrn Not Detected (NotDetected) U Benzodiazepines Scrn Not Detected (NotDetected) Urine Cocaine Screen Not Detected (NotDetected) U Marijuana (THC) Screen Not Detected (NotDetected) Serum Alcohol mg/dL 12/24/24 12/24/24 12/24/24 Range/Units 04:01 04:01 04:01 WBC 5.89 (4.50-10.00) 10*3/uL RBC 4.27 (4.10-5.20) 10*6/uL Hgb 13.0 (12.0-15.0) g/dL Hct 39.7 (37.2-46.3) % MCV 93.0 (80.0-97.0) fL MCH 30.4 (27.0-32.0) pg MCHC 32.7 (32.0-37.0) g/dL Plt Count 237 (140-440) 10*3/uL MPV 9.6 (9.5-12.2) fL Immature Gran % (Auto) 0.3 % Neutrophils % 46.2 % Lymphocytes % 44.1 % Monocytes % 7.5 % Eosinophils % 1.2 % Basophils % 0.7 % Immature Gran # 0.02 (0.00-0.04) 10*3/uL Neutrophils # 2.72 (1.80-7.70) 10*3/uL Lymphocytes # 2.60 (0.90-5.00) 10*3/uL Monocytes # 0.44 (0.20-1.00) 10*3/uL Eosinophils # 0.07 (0.04-0.35) 10*3/uL Basophils # 0.04 (0.00-0.10) 10*3/uL PT (10.0-12.5) sec INR (<1.2) APTT 44.5 H (22.0-30.0) sec Sodium 141 (137-145) mmol/L Potassium 3.8 (3.5-5.1) mmol/L Chloride 110 H (98-107) mmol/L Carbon Dioxide 23 (22-30) mmol/L Anion Gap 8 mmol/L BUN 11 (7-17) mg/dL Creatinine 0.52 (0.52-1.04) mg/dL Est GFR (CKD-EPI)AfAm >90 (>60 ml/min/1.73 sqM) Est GFR (CKD-EPI)NonAf >90 (>60 ml/min/1.73 sqM) Glucose 92 (74-99) mg/dL POC Glucose (mg/dL) (70-110) mg/dL POC Glu Field Applications Specialist ID Calcium 9.3 (8.4-10.2) mg/dL Phosphorus 3.2 (2.5-4.5) mg/dL Magnesium 2.1 (1.6-2.3) mg/dL Total Bilirubin 0.8 (0.2-1.3) mg/dL AST 24 (14-36) U/L ALT 15 (4-34) U/L Alkaline Phosphatase 66 (38-126) U/L Ammonia (<30) umol/L Troponin I (0.000-0.034) ng/mL Total Protein 6.4 (6.3-8.2) g/dL Albumin 3.8 (3.5-5.0) g/dL Urine Color Urine Appearance (Clear) Urine pH (5.0-8.0) Ur Specific [place] (1.001-1.035) Urine Protein (Negative) Urine Glucose (UA) (Negative) Urine Ketones (Negative) Urine Blood (Negative) Urine Nitrite (Negative) Urine Bilirubin (Negative) Urine Urobilinogen (<2.0) mg/dL Ur Leukocyte Esterase (Negative) Urine RBC (0-5) /hpf Urine WBC (0-5) /hpf Ur Squamous Epith Cells (0-4) /hpf Urine Mucus (None) /hpf Urine Opiates Screen (NotDetected) Ur Oxycodone Screen (NotDetected) Urine Methadone Screen (NotDetected) Ur Barbiturates Screen (NotDetected) U Tricyclic Antidepress (NotDetected) Ur Phencyclidine Scrn (NotDetected) Ur Amphetamines Screen (NotDetected) U Methamphetamines Scrn (NotDetected) U Benzodiazepines Scrn (NotDetected) Urine Cocaine Screen (NotDetected) U Marijuana (THC) Screen (NotDetected) Serum Alcohol mg/dL 12/24/24 12/24/24 Range/Units 09:27 17:41 WBC (4.50-10.00) 10*3/uL RBC (4.10-5.20) 10*6/uL Hgb (12.0-15.0) g/dL Hct (37.2-46.3) % MCV (80.0-97.0) fL MCH (27.0-32.0) pg MCHC (32.0-37.0) g/dL Plt Count (140-440) 10*3/uL MPV (9.5-12.2) fL Immature Gran % (Auto) % Neutrophils % % Lymphocytes % % Monocytes % % Eosinophils % % Basophils % % Immature Gran # (0.00-0.04) 10*3/uL Neutrophils # (1.80-7.70) 10*3/uL Lymphocytes # (0.90-5.00) 10*3/uL Monocytes # (0.20-1.00) 10*3/uL Eosinophils # (0.04-0.35) 10*3/uL Basophils # (0.00-0.10) 10*3/uL PT (10.0-12.5) sec INR (<1.2) APTT 38.0 H 48.0 H (22.0-30.0) sec Sodium (137-145) mmol/L Potassium (3.5-5.1) mmol/L Chloride (98-107) mmol/L Carbon Dioxide (22-30) mmol/L Anion Gap mmol/L BUN (7-17) mg/dL Creatinine (0.52-1.04) mg/dL Est GFR (CKD-EPI)AfAm (>60 ml/min/1.73 sqM) Est GFR (CKD-EPI)NonAf (>60 ml/min/1.73 sqM) Glucose (74-99) mg/dL POC Glucose (mg/dL) (70-110) mg/dL POC Glu Field Applications Specialist ID Calcium (8.4-10.2) mg/dL Phosphorus (2.5-4.5) mg/dL Magnesium (1.6-2.3) mg/dL Total Bilirubin (0.2-1.3) mg/dL AST (14-36) U/L ALT (4-34) U/L Alkaline Phosphatase (38-126) U/L Ammonia (<30) umol/L Troponin I (0.000-0.034) ng/mL Total Protein (6.3-8.2) g/dL Albumin (3.5-5.0) g/dL Urine Color Urine Appearance (Clear) Urine pH (5.0-8.0) Ur Specific [place] (1.001-1.035) Urine Protein (Negative) Urine Glucose (UA) (Negative) Urine Ketones (Negative) Urine Blood (Negative) Urine Nitrite (Negative) Urine Bilirubin (Negative) Urine Urobilinogen (<2.0) mg/dL Ur Leukocyte Esterase (Negative) Urine RBC (0-5) /hpf Urine WBC (0-5) /hpf Ur Squamous Epith Cells (0-4) /hpf Urine Mucus (None) /hpf Urine Opiates Screen (NotDetected) Ur Oxycodone Screen (NotDetected) Urine Methadone Screen (NotDetected) Ur Barbiturates Screen (NotDetected) U Tricyclic Antidepress (NotDetected) Ur Phencyclidine Scrn (NotDetected) Ur Amphetamines Screen (NotDetected) U Methamphetamines Scrn (NotDetected) U Benzodiazepines Scrn (NotDetected) Urine Cocaine Screen (NotDetected) U Marijuana (THC) Screen (NotDetected) Serum Alcohol mg/dL - EKG Data -: EKG Interpreted by Me (EKG sinus 74 [place] 134 QRS 77 QTc 415) - Radiology Data Radiology results: report reviewed (CT brain is negative for acute disease), image reviewed Disposition Clinical Impression: Altered mental status, TGA (transient global amnesia), NSTEMI (non-ST elevated myocardial infarction) Disposition: ADMITTED IP TO THIS [facility] Condition: Stable Is patient prescribed a controlled substance at d/c from ED?: No Time of Disposition: 17:20
[2024-12-23 15:44] LABS: Glucose,Whole Blood 97 mg/dL (70-110)
[2024-12-23] MEDS: SODIUM CHLORIDE 0.9% 1,000 ML IV ONE (15:53)
[2024-12-23 16:00] LABS: Basophils # (A) 0.04 10*3/uL (0.00-0.10); Basophils % (A) 0.6 %; Eosinophils # (A) 0.03 10*3/uL (0.04-0.35); Eosinophils % (A) 0.4 %; HCT 40.0 % (37.2-46.3); HGB 13.7 g/dL (12.0-15.0); Lymphocytes # (A) 1.46 10*3/uL (0.90-5.00); Lymphocytes % (A) 20.7 %; MCH 31.2 pg (27.0-32.0); MCHC 34.3 g/dL (32.0-37.0); MCV 91.1 fL (80.0-97.0); Monocytes # (A) 0.46 10*3/uL (0.20-1.00); Monocytes % (A) 6.5 %; Neutrophils # (A) 5.03 10*3/uL (1.80-7.70); Neutrophils % (A) 71.5 %; Platelet Count 224 10*3/uL (140-440); RBC 4.39 10*6/uL (4.10-5.20); RDW 12.9 % (11.5-14.5); WBC 7.04 10*3/uL (4.50-10.00)
[2024-12-23 16:11] LABS: ALT 17 U/L (4-34); AST 27 U/L (14-36); African American GFR (CKD) >90 (>60 ml/min/1.73 sqM); Albumin 4.3 g/dL (3.5-5.0); Alkaline Phosphatase 70 U/L (38-126); Anion Gap 12 mmol/L; Blood Urea Nitrogen 19 mg/dL (7-17); Calcium 9.9 mg/dL (8.4-10.2); Carbon Dioxide 21 mmol/L (22-30); Chloride 108 mmol/L (98-107); Glucose 99 mg/dL (74-99); Non-African American GFR(CKD) >90 (>60 ml/min/1.73 sqM); Potassium 3.9 mmol/L (3.5-5.1); Sodium 141 mmol/L (137-145); Total Protein 7.1 g/dL (6.3-8.2)
[2024-12-23 16:18] LABS: INR 1.0 (<1.2); Partial Thromboplastin Time 21.3 sec (22.0-30.0); Prothrombin Time 10.9 sec (10.0-12.5)
--- NOTE | 2024-12-23 16:38 | CT ---
EXAMINATION TYPE: CT brain wo con DATE OF EXAM: 12/23/2024 4:07 PM COMPARISON: None. CLINICAL INDICATION: Female, 69 years old with history of Altered mental status, Pt arrives to ED tod ay for new onset altered mentation x today. Last known well was around 1030. The patients was seen in our hospital for a STEMI today and the patient at that time was alert and oriented and answe ring all questions appropriately. Pt since then has had worsening memory issues TECHNIQUE: Brain: Axial CT images of the brain were obtained with coronal and sagittal reformats created and rev iewed. Contrast used: None. Oral contrast used: None. CT DLP: 1074.2 mGycm, Automated exposure control for dose reduction was used. FINDINGS: Brain: Extra-axial spaces: No abnormal extra-axial fluid collections. Ventricular system: Within normal limits Cerebral parenchyma: No acute intraparenchymal hemorrhage or mass effect. The dumont-white junction is well differentiated. Cerebellum: Unremarkable. Mass effect: No evidence of midline shift. Intracranial vasculature: unremarkable Soft tissues: Normal. Calvarium/osseous structures: No depressed skull fracture. Paranasal sinuses and mastoid air cells: Mild scattered paranasal sinus disease. Visualized orbits: Orbital contents are intact. IMPRESSION: No acute intracranial process. [facility], , 12/23/2024 4:35 PM
[2024-12-23 16:44] LABS: Bilirubin,Urine Negative (Negative); Blood,Urine Trace (Negative); Color,Urine Colorless; Glucose,Urine (UA) Negative (Negative); Ketones,Urine 2+ (Negative); Leukocyte Esterase,Urine Negative (Negative); Mucus,Urine Rare /hpf; Nitrite,Urine Negative (Negative); PH, Urine 5.5 (5.0-8.0); Protein,Urine Negative (Negative); RBC,Urine 3 /hpf (0-5); Specific Gravity,Urine 1.018 (1.001-1.035); Squamous Epithelial Cell,Urine <1 /hpf (0-4); Urobilinogen,Urine <2.0 mg/dL (<2.0); WBC,Urine 1 /hpf (0-5)
[2024-12-23 16:56] LABS: Barbiturate Screen,Urine Not Detected (NotDetected); Benzodiazepines Screen,Urine Not Detected (NotDetected); Opiate Screen,Urine Not Detected (NotDetected); Oxycodone Screen, Urine Not Detected (NotDetected); Phencyclidine Screen,Urine Not Detected (NotDetected); Tricyclic Antidepressant,Urine Not Detected (NotDetected); Urn Cannabinoid Scrn Not Detected (NotDetected)
[2024-12-23] MEDS ORDERED: MORPHINE SULFATE 4 MG/ML SYRINGE IV PRN (17:24)
[2024-12-23] MEDS ORDERED: ONDANSETRON 4 MG/2 ML VIAL IVP PRN (17:24)
[2024-12-23] MEDS ORDERED: NALOXONE 0.4 MG/ML 1 ML VIAL IV PRN (17:24)
[2024-12-23] MEDS ORDERED: LORazepam 1 MG/0.5 ML VIAL IV PRN (17:47)
[2024-12-23] MEDS: SODIUM CHLORIDE 0.9% 1,000 ML IV SCH (17:53)
[2024-12-23] MEDS: ONDANSETRON 4 MG/2 ML VIAL IVP STA (17:54)
[2024-12-23] MEDS: LORazepam 1 MG/0.5 ML VIAL IV STA (17:58)
[2024-12-23] MEDS ORDERED: ACETAMINOPHEN TAB 325 MG TAB PO PRN (18:53)
[2024-12-23] MEDS: ATORVASTATIN 80 MG TAB PO STA (21:10)
[2024-12-23] MEDS: ASPIRIN 81 MG PO STA (21:10)
[2024-12-23] MEDS: HEPARIN SODIUM 1,000 UN/ML (10ML VL) IV ONE (21:11)
[2024-12-23] MEDS: HEPARIN SOD,PORK IN 0.45% NACL 25,000 UNIT in 0.45% NACL 1 250ML.BAG IV SCH (21:12)
--- NOTE | 2024-12-23 23:14 | P.HPIM ---
History of Present Illness H&P Date: 12/23/24 Chief Complaint: Dizziness and lightheadedness 69 year old female with hypertension , hyperlipidemia Patient presented to the emergency department after experiencing dizziness and lightheadedness while sitting down. Patient's recently had a heart attack and received a stent, which caused anxiety for the patient. Patient denies chest pain, trouble breathing, passing out, weakness, numbness, or speech difficulties. Patient reports feeling nauseous but denies vomiting or sweating. Patient has a history of high blood pressure and high cholesterol, and takes medication for hypertension. Patient occasionally consumes Slim-Fast protein drinks but does not believe they are related to current symptoms. Patient's heart enzymes were found to be elevated, and heparin gtt was administered for ACS protocol . Further cardiac evaluation is planned. reports stress test in the past was normal , no heart cath , no history of CAD Patient drinks alcohol occasionally. Patient denies smoking or use of street drugs. review of systems Pertinent positives as noted in HPI. All other systems were reviewed and are negative Constitutional: Positive for dizziness and lightheadedness. Negative for fever, chills, or fatigue. Cardiovascular: Negative for chest pain, palpitations, or edema. Respiratory: Negative for shortness of breath or cough. Gastrointestinal: Positive for nausea. Negative for vomiting, abdominal pain, or changes in bowel habits. Neurological: Negative for weakness, numbness, or speech difficulties. Psychiatric: Positive for anxiety. Vital signs: Not provided. on exam Constitutional: No acute distress, conversant, pleasant Eyes: Anicteric sclerae, moist conjunctiva, Pupils equal round reactive to light ENMT: NC/AT Oropharynx clear, no erythema, or exudates Neck: Supple, no masses, or JVD No carotid bruits No thyromegaly Lungs: Clear to auscultation Clear to percussion Normal respiratory effort, no accessory muscle use Cardiovascular: Heart regular in rate and rhythm, No murmurs, gallops, or rubs No peripheral edema Abdominal: Soft Nontender, no guarding, rebound or rigidity Abdomen moving with respiration Normoactive bowel sounds Extremities: No digital cyanosis No clubbing Pedal pulses intact and symmetrical Radial pulses intact and symmetrical No calf tenderness Psychiatric: Alert and oriented to person, place and time anxious Neuro Muscles Strength 5/5 in all 4 extremities Sensation to light touch grossly present throughout Cranial nerves II-XII grossly intact Past Medical History Past Medical History: No Reported History History of Any Multi-Drug Resistant Organisms: None Reported Past Surgical History: Appendectomy, Hysterectomy Past Psychological History: Anxiety Smoking Status: Never smoker Past Alcohol Use History: Rare Past Drug Use History: None Reported Medications and Allergies Home Medications Medication Instructions Recorded Confirmed Type Losartan [Cozaar] 25 mg PO DAILY 12/23/24 12/23/24 History Rosuvastatin Calcium 5 mg PO DAILY 12/23/24 12/23/24 History Allergies Allergy/AdvReac Type Severity Reaction Status Date / Time codeine AdvReac Vomiting Verified 12/23/24 16:44 Physical Exam Vitals: Vital Signs Temp Pulse Resp BP Pulse Ox 12/23/24 21:09 72 18 161/89 97 12/23/24 18:44 77 18 173/94 96 12/23/24 18:11 75 18 154/95 95 12/23/24 17:43 75 18 175/95 98 12/23/24 16:35 75 18 183/99 97 12/23/24 15:30 82 18 196/82 96 12/23/24 15:13 98.2 F 88 18 182/92 96 Intake and Output 12/23/24 12/23/24 12/24/24 14:59 22:59 06:59 Other: Weight 58.967 kg Results CBC & Chem 7: 12/23/24 15:47 12/23/24 15:47 Labs: Abnormal Lab Results - Last 24 Hours (Table) 12/23/24 12/23/24 12/23/24 Range/Units 15:47 15:47 15:47 Eosinophils # 0.03 L (0.04-0.35) 10*3/uL APTT 21.3 L (22.0-30.0) sec Chloride 108 H (98-107) mmol/L Carbon Dioxide 21 L (22-30) mmol/L BUN 19 H (7-17) mg/dL Troponin I (0.000-0.034) ng/mL Urine Ketones (Negative) Urine Blood (Negative) Urine Mucus (None) /hpf 12/23/24 12/23/24 12/23/24 Range/Units 15:47 16:33 19:09 Eosinophils # (0.04-0.35) 10*3/uL APTT (22.0-30.0) sec Chloride (98-107) mmol/L Carbon Dioxide (22-30) mmol/L BUN (7-17) mg/dL Troponin I 0.088 H* 0.093 H* (0.000-0.034) ng/mL Urine Ketones 2+ H (Negative) Urine Blood Trace H (Negative) Urine Mucus Rare H (None) /hpf 12/23/24 Range/Units 21:46 Eosinophils # (0.04-0.35) 10*3/uL APTT (22.0-30.0) sec Chloride (98-107) mmol/L Carbon Dioxide (22-30) mmol/L BUN (7-17) mg/dL Troponin I 0.085 H* (0.000-0.034) ng/mL Urine Ketones (Negative) Urine Blood (Negative) Urine Mucus (None) /hpf Assessment and Plan Assessment: 69 year old female with HTN , HLD , presented with dizziness and light headedness , found to have elevated trops , i discussed the case with ED doc and I accepted the admission for rule out ACS. Assessment: 1. Dizziness and lightheadedness, likely multifactorial - Possible contributing factors: anxiety, cardiovascular issues 2. Elevated heart enzymes, etiology unclear, trops are flat 0.08 - 0.09 - 0.08 3. Hypertension, uncontrolled 4. Hyperlipidemia Differential Diagnosis: - Acute coronary syndrome - Stress-induced cardiomyopathy - Anxiety-induced symptoms - Medication side effects Brain CT no acute intracranial pathology Blood work overall unremarkable white count 7 hemoglobin 13.7 Sodium 141 potassium 3.9 unremarkable BUN 19 creatinine 0.6 unremarkable Urinalysis unremarkable Urine drug screen is negative Plan: 1. Admit for further cardiac evaluation and monitoring, heparin gtt for ACS protocol continue ASA statin 2. Repeat EKG to assess for any changes, current EKG NSR no acute ST changes 3. Cardiology consultation scheduled for tomorrow 4. Continue current medication for hypertension 5. Monitor vital signs and symptoms closely 6. Provide reassurance and support for anxiety , ativan 0.5 mg po tid prn 7. Educate patient on cardiac risk factors and lifestyle modifications 8. Follow up on pending test results and adjust treatment plan accordingly DVT PPX on heparin gtt for ACS full code Anticipated length of stay less than 2 midnights
[2024-12-23] MEDS: METOPROLOL TARTRATE 12.5 MG TAB PO SCH (23:52)
[2024-12-24 05:16] LABS: Basophils # (A) 0.04 10*3/uL (0.00-0.10); Basophils % (A) 0.7 %; Eosinophils # (A) 0.07 10*3/uL (0.04-0.35); Eosinophils % (A) 1.2 %; HCT 39.7 % (37.2-46.3); HGB 13.0 g/dL (12.0-15.0); Lymphocytes # (A) 2.60 10*3/uL (0.90-5.00); Lymphocytes % (A) 44.1 %; MCH 30.4 pg (27.0-32.0); MCHC 32.7 g/dL (32.0-37.0); MCV 93.0 fL (80.0-97.0); Monocytes # (A) 0.44 10*3/uL (0.20-1.00); Monocytes % (A) 7.5 %; Neutrophils # (A) 2.72 10*3/uL (1.80-7.70); Neutrophils % (A) 46.2 %; Platelet Count 237 10*3/uL (140-440); RBC 4.27 10*6/uL (4.10-5.20); RDW 13.4 % (11.5-14.5); WBC 5.89 10*3/uL (4.50-10.00)
[2024-12-24 05:34] LABS: ALT 15 U/L (4-34); AST 24 U/L (14-36); African American GFR (CKD) >90 (>60 ml/min/1.73 sqM); Albumin 3.8 g/dL (3.5-5.0); Alkaline Phosphatase 66 U/L (38-126); Anion Gap 8 mmol/L; Blood Urea Nitrogen 11 mg/dL (7-17); Calcium 9.3 mg/dL (8.4-10.2); Carbon Dioxide 23 mmol/L (22-30); Chloride 110 mmol/L (98-107); Glucose 92 mg/dL (74-99); Magnesium 2.1 mg/dL (1.6-2.3); Non-African American GFR(CKD) >90 (>60 ml/min/1.73 sqM); Potassium 3.8 mmol/L (3.5-5.1); Sodium 141 mmol/L (137-145); Total Protein 6.4 g/dL (6.3-8.2)
[2024-12-24] MEDS ORDERED: ASPIRIN 325 MG TAB PO SCH (09:00)
[2024-12-24] MEDS ORDERED: NITROGLYCERIN SL TABS 0.4 MG TAB SUBLINGUAL PRN (09:07)
[2024-12-24] MEDS ORDERED: ALPRAZolam 0.5 MG TAB PO PRN (09:07)
[2024-12-24] MEDS ORDERED: ALPRAZolam 0.25 MG TAB PO PRN (09:07)
--- NOTE | 2024-12-24 09:10 | P.CRDCN ---
History of Present Illness Consult date: 12/24/24 Reason for Consult (text): NSTEMI History of present illness: This is a 69-year-old female with past medical history of hypertension, hyperlipidemia. We have been asked to evaluate the patient for NSTEMI. Patient's was a patient here yesterday as a NSTEMI. Patient had found her unresponsive on the floor in a pool of vomitus. She states she has been under a significant amount of stress because of that. She states she came into the hospital with her [id number] and at some point she developed dizziness and lightheadedness while she was sitting. She thought that the anxiety from the incident was causing dizziness. She also had some confusion and is able to state that she knew she was confused. She has not had confusion before and normally is very active. She feels that she is back to normal but she has noted to have difficulty with the timing of events yesterday. She states she was feeling okay since last night. She denies having any chest pain chest pressure or chest tightness. She denies having syncopal episodes. She denies lower extremity edema. She has family history of a brother dying at age 62 from a heart attack and also a brother having a heart attack at age 39. She denies smoking, drinks alcohol occasionally. She states her blood pressure at home is usually normal. Patient presented with a blood pressure of 182/92. She is status post 1 L of IV fluid bolus, Ativan, Zofran. She has been started on aspirin, beta-augusto and statin and also started on heparin drip. Blood pressure now 153/87, heart rate in the 50s to 70s, pulse ox 97% on room air. Patient is seen today in the emergency center waiting for a bed on the cardiac stepdown unit. Dr. Yadav discussed recommendations with the patient for cardiac catheterization which patient is agreeable to move forward with. -EKG: Sinus rhythm with nonspecific T wave changes. -CAT scan of the brain: No acute findings -Laboratory studies: Troponin 0.088, 0.093, 0.085. CBC within normal limits. Electrolytes unremarkable, creatinine 0.52. Urine drug screen negative. Serum alcohol less than 10. -Home cardiac medications: Losartan 25 mg daily, rosuvastatin 5 mg daily. Review Of Systems: At the time of my exam: CONSTITUTIONAL: Denies fever or chills. HEENT: Denies blurred vision, vision changes, or eye pain. Denies hemoptysis CARDIOVASCULAR: Denies chest pain. Denies orthopnea. Denies PND. Denies palpitations RESPIRATORY: Denies shortness of breath. GASTROINTESTINAL: Denies abdominal pain. Denies nausea or vomiting. HEMATOLOGIC: Denies bleeding disorders. GENITOURINARY: Denies any blood in urine. SKIN: Denies puritis. Denies rash. Physical examination: Gen: This is 69-year-old female in no acute distress VS: reviewed HEENT: Head is atraumatic, normocephalic. Pupils equal, round. Sclerae is anicteric. NECK: Supple. No JVD. LUNGS: Clear to auscultation. No wheezes or rhonchi. No intercostal retracti ons. HEART: Regular rate and rhythm. No murmur. ABDOMEN: Soft No tenderness. EXTREMITIES: No pedal edema. No calf tenderness. NEUROLOGICAL: Patient is awake, alert and oriented x3. Assessment: NSTEMI Confusion and dizziness of unclear etiology, neurology on consult as well Symptoms possibly related to anxiety Hypertension, uncontrolled Hyperlipidemia Plan: Resume patient's home cardiac medications Continue heparin drip Continue aspirin 81 mg daily, metoprolol tartrate 12.5 mg twice daily Obtain 2-D echocardiogram and Doppler study to assess cardiac structure and function Patient will be scheduled for cardiac catheterization on Wednesday with Dr. Yadav. N.p.o. after midnight Further recommendations to follow based upon clinical course Thank you kindly for this consultation. Nurse practitioner note has been reviewed, I agree with documented findings and plan of care. Patient was seen and examined. Past Medical History Past Medical History: No Reported History History of Any Multi-Drug Resistant Organisms: None Reported Past Surgical History: Appendectomy, Hysterectomy Past Psychological History: Anxiety Smoking Status: Never smoker Past Alcohol Use History: Rare Past Drug Use History: None Reported Medications and Allergies Home Medications Medication Instructions Recorded Confirmed Type Losartan [Cozaar] 25 mg PO DAILY 12/23/24 12/23/24 History Rosuvastatin Calcium 5 mg PO DAILY 12/23/24 12/23/24 History Allergies Allergy/AdvReac Type Severity Reaction Status Date / Time codeine AdvReac Vomiting Verified 12/23/24 16:44 Physical Exam Vitals: Vital Signs Temp Pulse Resp BP Pulse Ox 12/24/24 04:30 57 L 16 153/87 97 12/23/24 23:53 70 18 149/83 100 12/23/24 21:09 72 18 161/89 97 12/23/24 18:44 77 18 173/94 96 12/23/24 18:11 75 18 154/95 95 12/23/24 17:43 75 18 175/95 98 12/23/24 16:35 75 18 183/99 97 12/23/24 15:30 82 18 196/82 96 12/23/24 15:13 98.2 F 88 18 182/92 96 Intake and Output 12/23/24 12/23/24 12/24/24 14:59 22:59 06:59 Other: Weight 58.967 kg Results 12/24/24 04:01 12/24/24 04:01 Cardiac Enzymes 12/23/24 12/23/24 12/23/24 Range/Units 15:47 15:47 19:09 AST 27 (14-36) U/L Troponin I 0.088 H* 0.093 H* (0.000-0.034) ng/mL 12/23/24 12/24/24 Range/Units 21:46 04:01 AST 24 (14-36) U/L Troponin I 0.085 H* (0.000-0.034) ng/mL Coagulation 12/23/24 12/24/24 Range/Units 15:47 04:01 PT 10.9 (10.0-12.5) sec APTT 21.3 L 44.5 H (22.0-30.0) sec CBC 12/23/24 12/24/24 Range/Units 15:47 04:01 WBC 7.04 5.89 (4.50-10.00) 10*3/uL RBC 4.39 4.27 (4.10-5.20) 10*6/uL Hgb 13.7 13.0 (12.0-15.0) g/dL Hct 40.0 39.7 (37.2-46.3) % Plt Count 224 237 (140-440) 10*3/uL Comprehensive Metabolic Panel 12/23/24 12/24/24 Range/Units 15:47 04:01 Sodium 141 141 (137-145) mmol/L Potassium 3.9 3.8 (3.5-5.1) mmol/L Chloride 108 H 110 H (98-107) mmol/L Carbon Dioxide 21 L 23 (22-30) mmol/L BUN 19 H 11 (7-17) mg/dL Creatinine 0.64 0.52 (0.52-1.04) mg/dL Glucose 99 92 (74-99) mg/dL Calcium 9.9 9.3 (8.4-10.2) mg/dL AST 27 24 (14-36) U/L ALT 17 15 (4-34) U/L Alkaline Phosphatase 70 66 (38-126) U/L Total Protein 7.1 6.4 (6.3-8.2) g/dL Albumin 4.3 3.8 (3.5-5.0) g/dL Current Medications Generic Name Dose Route Start Last Admin Trade Name Freq PRN Reason Stop Dose Admin Acetaminophen 650 mg 12/23/24 18:53 Acetaminophen Tab 325 Mg Tab PO Q6HR PRN Fever and/ or Pain Aspirin 325 mg 12/24/24 09:00 Aspirin 325 Mg Tab PO DAILY [facility] Atorvastatin Calcium 10 mg 12/24/24 09:00 Atorvastatin 10 Mg Tab PO DAILY KAYLAH Heparin Sodium (Porcine) 0 unit 12/23/24 20:43 Heparin Sodium 1,000 Un/Ml (10ml Vl) IV PER PROTOCOL PRN Low PTT Protocol Sodium Chloride 1,000 mls @ 75 mls/hr 12/23/24 17:30 12/23/24 17:53 Saline 0.9% IV 75 mls/hr .[id number] KAYLAH Administration Heparin Sodium/Sodium Chloride 250 mls @ 7.076 mls/hr 12/23/24 20:45 12/23/24 21:12 25,000 unit/ Sodium Chloride IV 12 units/kg/hr .Q24H KAYLAH 7.076 mls/hr Administration Protocol 12 UNITS/KG/HR Lorazepam 1 mg 12/23/24 17:47 Lorazepam 1 Mg/0.5 Ml Vial IV Q4HR PRN Anxiety Losartan Potassium 25 mg 12/24/24 09:00 Losartan 25 Mg Tab PO DAILY [facility]LA[facility] Metoprolol Tartrate 12.5 mg 12/23/24 23:30 12/23/24 23:52 Metoprolol Tartrate 12.5 Mg Tab PO 12.5 mg BID KAYLAH Administration Morphine Sulfate 4 mg 12/23/24 17:24 Morphine Sulfate 4 Mg/Ml Syringe IV Q4HR PRN Severe Pain (Scale 7 to 10) Naloxone HCl 0.2 mg 12/23/24 17:24 Naloxone 0.4 Mg/Ml 1 Ml Vial IV Q2M PRN Opioid Reversal Ondansetron HCl 4 mg 12/23/24 17:24 Ondansetron 4 Mg/2 Ml Vial IVP Q8HR PRN Nausea And Vomiting Intake and Output 12/23/24 12/23/24 12/24/24 14:59 22:59 06:59 Other: Weight 58.967 kg Patient Weight 12/24/24 06:59 Weight 58.967 kg 12/24/24 04:01 12/24/24 04:01
[2024-12-24] MEDS: ATORVASTATIN 10 MG TAB PO SCH (09:26)
[2024-12-24] MEDS: LOSARTAN 25 MG TAB PO SCH (09:27)
[2024-12-24] MEDS: ASPIRIN 81 MG PO SCH (09:27)
[2024-12-24] MEDS: SODIUM CHLORIDE 5% OPHTH DROPS 15 ML BTL BOTH EYES SCH (11:28)
[2024-12-24] MEDS: HEPARIN SODIUM 1,000 UN/ML (10ML VL) IV PRN (11:57)
--- NOTE | 2024-12-24 15:21 | P.PN ---
Subjective Progress Note Date: 12/24/24 Hospital course: Patient is a very pleasant 69-year-old female with a reported past medical history of hypertension and hyperlipidemia. She presented to the emergency department on 12/23/2024 after experiencing dizziness/lightheadedness, confusion with some mild chest pressure shortly after returning home. Patient had a very busy/stressful today as her was brought into the hospital as a STEMI and underwent emergent heart cath with stent placement and still needs another stent placed. Upon arrival to our facility, patient underwent evaluation in the emergency department. Vital signs upon arrival show blood pressure 182/92, heart rate 88, respiratory rate 18, temp 98.2 F, and SpO2 of 96% on room air. EKG completed showing normal sinus rhythm at 74 bpm with no significantly noted T wave or ST abnormality showing no signs of acute ischemia upon personal review and interpretation. CT brain negative for acute intracranial process. Labs completed and reviewed. CBC unremarkable. Coagulation profile showing a low PTT of 21.3. BMP showing high anion gap metabolic acidosis with chloride of 108, bicarb of 21, and anion gap of 12. Blood glucose was 99. Liver profile unremarkable. Troponin was elevated at 0.088. Patient was started on IV heparin infusion and admitted under our services with consultation to cardiology. Troponins were trended resulting at 0.088, 0.093, and 0.085. Physical exam: Patient seen and fully evaluated at bedside this morning. She currently reports feeling well and states full resolution of dizziness, lightheadedness, or chest pain. She denies having any palpitations, shortness of breath, or experiencing any numbness/tingling/weakness in her extremities. Vital signs reviewed and stable. General: Nontoxic, no distress and appears stated age. Derm: Skin warm and dry, normal coloration for ethnicity. Head: Atraumatic, normocephalic and symmetric. Eyes: EOM's intact, no lid lag, and anicteric sclera Mouth: no lip lesions, mucus membranes moist Cardiovascular: regular rate and rhythm with normal S1S2, no murmur, positive posterior tibial pulses bilaterally, and cap refill < 2 seconds. Lungs: Respirations even, regular, and unlabored on room air. Lungs CTA bilaterally, no rhonchi, no rales, no wheezing, and no accessory muscle usage. Abdominal: soft, nontender to palpation, no guarding, no appreciable organomegaly Ext: ROM intact. No gross muscle atrophy, no edema, no contractures Neuro: Speech clear, face symmetrical and CN II-XII grossly intact with no noted focal neuro deficits Psych: Alert and oriented to person, place, time, and situation. Appropriate and pleasant affect. Assessment and Plan of Care: NSTEMI Acute metabolic encephalopathy with dizziness/lightheadedness, resolved Hypertension with hypertensive urgency upon arrival Hyperlipidemia -Cardiology care with cardiac JACQUARD LOOM CARD CHANGER. Patient scheduled for cardiac catheterization tomorrow morning. -Telemetry monitoring -Troponins were trended resulting at 0.088, 0.093, and 0.085. -Cardiac diet, NPO at midnight -Obtain chest x-ray as patient is on heparin infusion -Continue low intensity heparin infusion with close monitoring of PTT for goal therapeutic range of 45 to 79 seconds. -Aspirin 81 mg daily, atorvastatin, -Lipid profile with a.m. labs. -Echocardiogram Data and imaging reviewed: Morning labs reviewed. CBC unremarkable. PTT slightly subtherapeutic at 44.5. BMP showing resolution of high anion gap metabolic acidosis with only mild hyperchloremia remaining with chloride of 110. Blood glucose 92.Troponins were trended resulting at 0.088, 0.093, and 0.085. -Order placed for chest x-ray, will follow-up on results once available Vital signs reviewed. Blood pressure 159/89, heart rate 61, respiratory rate 17, and SpO2 of 96% on room air. CODE STATUS: Full code DVT prophylaxis: Low intensity heparin infusion Discussed with: Patient, RN, and cardiology JACQUARD LOOM CARD CHANGER Anticipated discharge date: Pending clinical course Anticipated discharge place: Home Patient was seen independently by Nurse Pracitioner. This document was prepared using [employer] dictation software. Please allow for errors in pre fabricator, while rare they do occur. Luis Sabillon, ANJU rendered care for this patient independently, reviewed the findings and plan as documented in the note above and agree with plan. I did not physically speak with or examine the patient on this date. Objective - Vital Signs Vital signs: Vital Signs Temp 98.2 F 12/23/24 15:13 Pulse 57 L 12/24/24 04:30 Resp 16 12/24/24 04:30 BP 153/87 12/24/24 04:30 Pulse Ox 97 12/24/24 04:30 FiO2 Intake & Output 12/23/24 12/24/24 12/24/24 18:59 06:59 18:59 Weight 58.967 kg - Labs CBC & Chem 7: 12/24/24 04:01 12/24/24 04:01 Labs: Abnormal Lab Results - Last 24 Hours (Table) 12/23/24 12/23/24 12/23/24 Range/Units 15:47 15:47 15:47 Eosinophils # 0.03 L (0.04-0.35) 10*3/uL APTT 21.3 L (22.0-30.0) sec Chloride 108 H (98-107) mmol/L Carbon Dioxide 21 L (22-30) mmol/L BUN 19 H (7-17) mg/dL Troponin I (0.000-0.034) ng/mL Urine Ketones (Negative) Urine Blood (Negative) Urine Mucus (None) /hpf 12/23/24 12/23/24 12/23/24 Range/Units 15:47 16:33 19:09 Eosinophils # (0.04-0.35) 10*3/uL APTT (22.0-30.0) sec Chloride (98-107) mmol/L Carbon Dioxide (22-30) mmol/L BUN (7-17) mg/dL Troponin I 0.088 H* 0.093 H* (0.000-0.034) ng/mL Urine Ketones 2+ H (Negative) Urine Blood Trace H (Negative) Urine Mucus Rare H (None) /hpf 12/23/24 12/24/24 12/24/24 Range/Units 21:46 04:01 04:01 Eosinophils # (0.04-0.35) 10*3/uL APTT 44.5 H (22.0-30.0) sec Chloride 110 H (98-107) mmol/L Carbon Dioxide (22-30) mmol/L BUN (7-17) mg/dL Troponin I 0.085 H* (0.000-0.034) ng/mL Urine Ketones (Negative) Urine Blood (Negative) Urine Mucus (None) /hpf
--- NOTE | 2024-12-24 15:55 | P.CNNES ---
History of Present Illness Consult date: 12/24/24 Reason for Consult: Altered mental status History of Present Illness: The patient is a 69-year-old female who is seen in neurologic consultation on 05/26/2025, in collaboration with Shelia Andrews, via teleneurology. History is obtained from review of the chart and the patient. The patient reports that she found her on the floor, unresponsive, at home, yesterday. EMS was called to the home. The patient was transported to the emergency department. He was diagnosed with a myocardial infarction. He was admitted and had a cardiac catheterization performed with stent placement. The patient reports that she recalls finding her on the floor, however does not recall all the events of yesterday. She says that she was reported to be confused. She was apparently was aware that she was confused. She reports having a headache. She denies difficulty with speech, ambulation and vision. Patient was reportedly taken down to the emergency department, because of her confusion. In the emergency department, a CT scan of the brain was performed. There was no reported evidence of acute hemorrhage or infarct. These images have been personally reviewed. Laboratory evaluation revealed elevated troponins that continued to trend upward. Other labs are normal. The patient denies a history of similar events. She states that she has been through major stressful events in the past however, has not had a similar reaction. She does report that when she found her , she was not sure if it was "the end". On evaluation this morning, the patient says she feels back to her baseline. She still does not recall all of the events of yesterday. She continues to report that she was very "stressed". She denies chest pain. She says that yesterday she did have a headache. There was no reported facial droop, weakness of extremities or numbness of extremities. The patient reports this morning that she has a poor appetite. She does report a family history of brain aneurysm. Past Medical History Past Medical History: No Reported History, Hyperlipidemia, Hypertension History of Any Multi-Drug Resistant Organisms: None Reported Past Surgical History: Appendectomy, Hysterectomy Past Psychological History: Anxiety Smoking Status: Never smoker Past Alcohol Use History: Rare Past Drug Use History: None Reported Medications and Allergies Home Medications Medication Instructions Recorded Confirmed Type Losartan [Cozaar] 25 mg PO DAILY 12/23/24 12/23/24 History Rosuvastatin Calcium 5 mg PO DAILY 12/23/24 12/23/24 History Allergies Allergy/AdvReac Type Severity Reaction Status Date / Time codeine AdvReac Vomiting Verified 12/23/24 16:44 Physical Examination - Vital Signs Vital Signs: Vital Signs Temp Pulse Resp BP Pulse Ox 12/24/24 04:30 57 L 16 153/87 97 12/23/24 23:53 70 18 149/83 100 12/23/24 21:09 72 18 161/89 97 12/23/24 18:44 77 18 173/94 96 12/23/24 18:11 75 18 154/95 95 12/23/24 17:43 75 18 175/95 98 12/23/24 16:35 75 18 183/99 97 12/23/24 15:30 82 18 196/82 96 12/23/24 15:13 98.2 F 88 18 182/92 96 Intake and Output 12/23/24 12/24/24 12/24/24 22:59 06:59 14:59 Other: Weight 58.967 kg General: The patient is well-nourished, well-developed and in no acute distress. HEENT: Head is atraumatic, normocephalic. Fundus not visualized. There is no scleral icterus. Mucous membranes are moist. Neck: Supple without carotid bruits Heart: Regular rate and rhythm Lungs: There is no shortness of breath or cough Extremities: Without edema Neurological examination Mental status: The patient is awake, alert and oriented x 3. Speech is clear. There is no dysarthria or aphasia Cranial nerves: Pupils are equal at 3 mm and reactive. Visual hernandez are full to confrontation. Extraocular movements are intact. There is no nystagmus. Facial sensation is intact. There is no facial asymmetry. Hearing is grossly intact. Uvula and palate are midline. Shoulder shrug is symmetric. Tongue protrudes midline. Motor: Strength is 5/5 throughout Sensation: Intact to light touch throughout. There is no extinction with double simultaneous stimulation. Coordination: [id number]-ny-[id number], rapid alternating movements and olgm-el-ycal te sting is intact. There is no pronator drift. Deep tendon reflexes: 2+/4+ throughout. Plantar responses are flexor bilaterally. Gait: Not assessed Results I have personally reviewed CT scan brain images. I agree with the radiology report - Laboratory Findings CBC and BMP: 12/24/24 04:01 12/24/24 04:01 Abnormal Lab Findings: Abnormal Labs 12/23/24 12/23/24 12/23/24 15:47 15:47 15:47 Eosinophils # 0.03 L APTT 21.3 L Chloride 108 H Carbon Dioxide 21 L BUN 19 H Troponin I Urine Ketones Urine Blood Urine Mucus 12/23/24 12/23/24 12/23/24 15:47 16:33 19:09 Eosinophils # APTT Chloride Carbon Dioxide BUN Troponin I 0.088 H* 0.093 H* Urine Ketones 2+ H Urine Blood Trace H Urine Mucus Rare H 12/23/24 12/24/24 12/24/24 21:46 04:01 04:01 Eosinophils # APTT 44.5 H Chloride 110 H Carbon Dioxide BUN Troponin I 0.085 H* Urine Ketones Urine Blood Urine Mucus 12/24/24 09:27 Eosinophils # APTT 38.0 H Chloride Carbon Dioxide BUN Troponin I Urine Ketones Urine Blood Urine Mucus Assessment and Plan Assessment: 1. The patient's altered mental status is likely secondary to a severe stress reaction. There were no reported focal or lateralizing deficits to suggest cerebral ischemia. There were no abnormal labs, other than elevated troponins, to suggest toxic metabolic encephalopathy. Transient global amnesia may also be a potential diagnosis. The patient currently has a normal neurological examination. 2. Non-ST elevated myocardial infarction 3. History of hypertension 4. History of hyperlipidemia Plan: 1. Agree with cardiology management and treatment 2. No further neurologic intervention is needed at this time. Neurology will sign off. Please call with questions or concerns. Thank you for allowing us to participate in the care of this patient Time with Patient: Greater than 30 (65 minutes were spent caring for this patient today including, obtaining history, examining the patient, reviewing imaging, chart documentation, labs, placing orders and creating this note)
--- NOTE | 2024-12-24 16:42 | XR ---
EXAMINATION TYPE: XR chest 1V portable DATE OF EXAM: 12/24/2024 3:24 PM CLINICAL INDICATION:Female, 69 years old with history of CP/Dizziness/Lightheadedness on admission; P HH COMPARISON: None TECHNIQUE: XR chest 1V portable Frontal view of the chest. FINDINGS: Lungs/Pleura: There is no evidence of pleural effusion or pneumothorax. Right lower lung atelectasis . Pulmonary vascularity: Unremarkable. Heart/mediastinum: Cardiomediastinal silhouette is unremarkable. Musculoskeletal: No acute osseous pathology. IMPRESSION: Right lower lung atelectasis with no other acute cardiopulmonary disease/process. [facility], , 12/24/2024 4:40 PM
[2024-12-24] MEDS: LOSARTAN 25 MG TAB PO STA (18:16)
[2024-12-24] MEDS: amLODIPine 5 MG TAB PO SCH (18:16)
[2024-12-25] MEDS: ASPIRIN 325 MG TAB PO ONE (06:34)
[2024-12-25] MEDS: ATORVASTATIN 80 MG TAB PO ONE (06:34)
[2024-12-25 07:27] LABS: HCT 38.7 % (37.2-46.3); HGB 13.0 g/dL (12.0-15.0); MCH 30.7 pg (27.0-32.0); MCHC 33.6 g/dL (32.0-37.0); MCV 91.3 fL (80.0-97.0); Platelet Count 216 10*3/uL (140-440); RBC 4.24 10*6/uL (4.10-5.20); RDW 13.1 % (11.5-14.5); WBC 4.64 10*3/uL (4.50-10.00)
[2024-12-25] MEDS: LOSARTAN 50 MG TAB PO SCH (08:01)
[2024-12-25 08:07] LABS: ALT 14 U/L (4-34); AST 25 U/L (14-36); African American GFR (CKD) >90 (>60 ml/min/1.73 sqM); Albumin 3.8 g/dL (3.5-5.0); Alkaline Phosphatase 66 U/L (38-126); Anion Gap 10 mmol/L; Blood Urea Nitrogen 12 mg/dL (7-17); Calcium 9.2 mg/dL (8.4-10.2); Carbon Dioxide 20 mmol/L (22-30); Chloride 112 mmol/L (98-107); Glucose 103 mg/dL (74-99); Magnesium 1.7 mg/dL (1.6-2.3); Non-African American GFR(CKD) >90 (>60 ml/min/1.73 sqM); Potassium 3.6 mmol/L (3.5-5.1); Sodium 142 mmol/L (137-145); Total Protein 6.5 g/dL (6.3-8.2)
[2024-12-25] MEDS: IV FLUID CONTINUATION 1,000 ML IV ONE (08:22)
[2024-12-25] MEDS: HEPARIN SODIUM,PORCINE 10,000 UNIT in SODIUM CHLORIDE 0.9% 1,000 ML IRRIGATION PRN (08:22)
[2024-12-25] MEDS: HEPARIN SODIUM,PORCINE (1 ML) 2,500 UNIT in SODIUM CHLORIDE 0.9% 250 ML IRRIGATION PRN (08:22)
[2024-12-25] MEDS: fentaNYL (PF) 50 MCG/ML 2 ML AMP IVP ONE (08:29)
[2024-12-25] MEDS: MIDAZOLAM 2 MG/2 ML VIAL IVP ONE (08:29)
[2024-12-25] MEDS: LIDOCAINE 1% INJ 10MG/ML (20 ML MDV) SQ ONE (08:30)
[2024-12-25] MEDS: VERAPAMIL SYRINGE (5 MG/10 ML) INTRAARTER ONE (08:31)
[2024-12-25] MEDS: HEPARIN SODIUM 1,000 UN/ML (10ML VL) IVP ONE (08:36)
[2024-12-25] MEDS: IOPAMIDOL-370 100ML BTL INJ ONE (08:43)
--- NOTE | 2024-12-25 08:47 | P.CARDCATH ---
Description of Procedure: PROCEDURES PERFORMED: Left heart catheterization, bilateral coronary angiography, ultrasound guided arterial access INDICATION: Non-STEMI CONSENT:I have discussed the risks, benefits and alternative therapies for the above-mentioned procedure and for both sedation/analgesia as well as necessary blood product administration, if indicated, as they pertain to this patient. The patient has indicated understanding and acceptance of the risks and procedures discussed. PROCEDURE: After the risks, benefits and alternatives of the above mentioned procedure explained in detail with the patient, informed consent was obtained. Patient was taken to the catheterization lab and prepped and draped in usual fashion. Ultrasound guidance was used to assess for arterial access. 1% lidocaine was used to anesthetize the right radial artery. A 6-Polish sheath was placed in the right radial artery using modified Seldinger technique and ul trasound guidance. Left coronary angiography was performed with a 5-Polish JL 3.5 catheter and right coronary angiography was performed with a 5-Polish FR5 catheter in various views. A 5-Polish pigtail catheter was inserted into the left ventricle and pressure measurements were obtained. A left ventriculogram was performed in the HUNTER projection with power injection. The right radial sheath was removed and a TR band was placed with hemostasis achieved. The patient tolerated the procedure well. Patient was transported back to the post catheterization holding area in stable condition. Conscious Sedation: Patient was monitored under the direct supervision of myself for conscious sedation using Versed and fentanyl for a total duration of 15 minutes HEMODYNAMICS: Ao: 138/72 LV: 135/5, LVEDP 15 SELECTIVE CORONARY ARTERIOGRAPHY: LEFT MAIN: The left main is a large caliber vessel which bifurcates into the LAD and circumflex. There is no significant stenosis. LEFT ANTERIOR DESCENDING CORONARY ARTERY: LAD is a large caliber vessel which wraps around to the apex. There is no significant stenosis. LEFT CIRCUMFLEX CORONARY ARTERY: Left circumflex is a large caliber vessel without significant stenosis. There is a high OM, nearly ramus without significant disease. The circumflex gives off the PDA and is the dominant vessel. RIGHT CORONARY ARTERY: The right coronary artery is a small caliber vessel which gives off an acute marginal branch and is nondominant. There is no significant stenosis. Left ventriculogram: Left ventricular ejection fraction 60%. No significant mitral regurgitation FINAL IMPRESSION: 1. Normal coronary arteries as described above. 2. Normal left sided filling pressures 3. Normal left ventricular EF 60% PLAN: 1. Aggressive risk factor modification per most recent ACC/AHA guidelines. 2. Follow-up in the office in 1-2 weeks.
[2024-12-25 10:55] LABS: Cholesterol 128.00 mg/dL (0.00-200.00); HDL Cholesterol 78.10 mg/dL (40.00-60.00); LDL Cholesterol,Calculated 38.0 mg/dL (0.0-131.0); Triglycerides 59.50 mg/dL (0.00-149.00); VLDL Calculation 11.90 mg/dL (5.00-40.00)
[2024-12-25 11:08] VITALS: RESP 16; TEMP 98
--- NOTE | 2024-12-25 11:45 | P.PN ---
Subjective Progress Note Date: 12/25/24 This is a 69-year-old female with past medical history of hypertension, hyperlipidemia. We have been asked to evaluate the patient for NSTEMI. Patient's was a patient here yesterday as a NSTEMI. Patient had found her unresponsive on the floor in a pool of vomitus. She states she has been under a significant amount of stress because of that. She states she came into the hospital with her [id number] and at some point she developed dizziness and lightheadedness while she was sitting. She thought that the anxiety from the incident was causing dizziness. She also had some confusion and is able to state that she knew she was confused. She has not had confusion before and normally is very active. She feels that she is back to normal but she has noted to have difficulty with the timing of events yesterday. She states she was feeling okay since last night. She denies having any chest pain chest pressure or chest tightness. She denies having syncopal episodes. She denies lower extremity edema. She has family history of a brother dying at age 62 from a heart attack and also a brother having a heart attack at age 39. She denies smoking, drinks alcohol occasionally. She states her blood pressure at home is usually normal. Patient presented with a blood pressure of 182/92. She is status post 1 L of IV fluid bolus, Ativan, Zofran. She has been started on aspirin, beta-augusto and statin and also started on heparin drip. Blood pressure now 153/87, heart rate in the 50s to 70s, pulse ox 97% on room air. Patient is seen today in the emergency center waiting for a bed on the cardiac stepdown unit. Dr. Yadav discussed recommendations with the patient for cardiac catheterization which patient is agreeable to move forward with. -EKG: Sinus rhythm with nonspecific T wave changes. -CAT scan of the brain: No acute findings -Laboratory studies: Troponin 0.088, 0.093, 0.085. CBC within normal limits. Electrolytes unremarkable, creatinine 0.52. Urine drug screen negative. Serum alcohol less than 10. -Home cardiac medications: Losartan 25 mg daily, rosuvastatin 5 mg daily. Review Of Systems: Progress note 12/25/2024 Seen and examined at bedside this a.m. Blood pressure is better controlled now that the patient is relaxed. Will continue current regimen. Right radial access site appears to be intact. Physical examination: Gen: This is 69-year-old female in no acute distress VS: reviewed HEENT: Head is atraumatic, normocephalic. Pupils equal, round. Sclerae is anicteric. NECK: Supple. No JVD. LUNGS: Clear to auscultation. No wheezes or rhonchi. No intercostal retractions. HEART: Regular rate and rhythm. No murmur. ABDOMEN: Soft No tenderness. EXTREMITIES: No pedal edema. No calf tenderness. NEUROLOGICAL: Patient is awake, alert and oriented x3. Assessment: NSTEMI, with minimal nonobstructive CAD Confusion and dizziness of unclear etiology, neurology on consult as well Symptoms possibly related to anxiety Hypertension, now better controlled Hyperlipidemia Plan: Patient is okay to be discharged from cardiovascular standpoint Discharge her on current regimen of aspirin 81, Lipitor 40, amlodipine 5, losartan 50, metoprolol 12.5 twice daily Follow-up outpatient with Dr. Yadav Objective - Vital Signs Vital signs: Vital Signs Temp 98 F 12/25/24 08:00 Pulse 69 12/25/24 08:00 Resp 16 12/25/24 08:00 BP 201/98 12/25/24 08:00 Pulse Ox 100 12/25/24 08:00 FiO2 Intake & Output 12/24/24 12/25/24 12/25/24 18:59 06:59 18:59 Intake Total 104.017 74.845 300 Balance 104.017 74.845 300 Weight 66.7 kg Intake: IV 300 Intake, IV Titration 104.017 74.845 Amount Heparin Sod,Pork in 0.45% 104.017 74.845 NaCl 25,000 unit In 0.45 % NaCl 1 250ml.bag @ 12 UNITS/KG/HR 7.076 mls/hr IV .Q24H KAYLAH Rx#: [id number] Other: Voiding Method Toilet Toilet # Voids 1 - Labs CBC & Chem 7: 12/25/24 06:40 12/25/24 06:40 Labs: Abnormal Lab Results - Last 24 Hours (Table) 12/24/24 12/25/24 12/25/24 Range/Units 17:41 06:40 06:40 APTT 48.0 H 34.3 H (22.0-30.0) sec Chloride 112 H (98-107) mmol/L Carbon Dioxide 20 L (22-30) mmol/L Glucose 103 H (74-99) mg/dL HDL Cholesterol 78.10 H (40.00-60.00) mg/dL
--- NOTE | 2024-12-25 14:23 | CA ---
Transthoracic Echo Report Name: Sahara Cameron Age: 69 Gender: F : 1955 Exam Date: 12/25/2024 09:15 Exam Location: [facility] Ht (in): 62 Wt (lb): 147 Ordering Physician: Huong Emery Attending/Referring Phys: [id number], Yuly [employer] Brandee Rao RDCS Procedure CPT: Indications: lvf, NSTEMI Cardiac Hx: Technical Quality: Good Contrast 1: Total Dose (mL): Contrast 2: Total Dose (mL): MEASUREMENTS (Male / Female) Normal Values 2D ECHO LV Diastolic Diameter PLAX 4.0 cm 4.2 - 5.9 / 3.9 - 5.3 cm LV Systolic Diameter PLAX 2.6 cm IVS Diastolic Thickness 1.0 cm 0.6 - 1.0 / 0.6 - 0.9 cm LVPW Diastolic Thickness 1.0 cm 0.6 - 1.0 / 0.6 - 0.9 cm LV Relative Wall Thickness 0.5 LVOT Diameter 1.9 cm LV Diastolic Volume MOD BP 72.3 cm??? 67 - 155 / 56 - 104 cm??? LV Systolic Volume MOD BP 28.2 cm??? 22 - 58 / 19 - 49 cm??? LV Ejection Fraction MOD BP 61.0 % >= 55 % LV Cardiac Index MOD BP 1508.6 cm???/min???m??? LV Diastolic Volume MOD 4C 68.7 cm??? LV Systolic Volume MOD 4C 24.6 cm??? LV Ejection Fraction MOD 4C 64.2 % LV Cardiac Index MOD 4C 1509.0 cm???/min???m??? LV Diastolic Length 4C 6.9 cm LV Systolic Length 4C 5.3 cm LV Diastolic Volume MOD 2C 74.9 cm??? LV Systolic Volume MOD 2C 30.8 cm??? LV Ejection Fraction MOD 2C 58.9 % LV Cardiac Index MOD 2C 1509.5 cm???/min???m??? LV Diastolic Length 2C 7.0 cm LV Systolic Length 2C 5.6 cm LA Volume 38.6 cm??? 18 - 58 / 22 - 52 cm??? LA Volume Index 22.4 cm???/m??? 16 - 28 cm???/m??? Ascending Aorta Diameter 3.1 cm DOPPLER AV Peak Velocity 164.6 cm/s AV Peak Gradient 10.8 mmHg AV Mean Velocity 106.7 cm/s AV Mean Gradient 5.2 mmHg AV Velocity Time Integral 33.5 cm LVOT Peak Velocity 118.6 cm/s LVOT Peak Gradient 5.6 mmHg LVOT Velocity Time Integral 25.4 cm LVOT Stroke Volume 72.6 cm??? LVOT Stroke Volume Index 43.3 ml/m??? LVOT Cardiac Index 2482.3 cm???/min???m??? AV Area Cont Eq vti 2.2 cm??? AV Area Cont Eq pk 2.1 cm??? MV Area PHT 4.2 cm??? Mitral E Point Velocity 57.5 cm/s Mitral A Point Velocity 75.6 cm/s Mitral E to A Ratio 0.8 MV Deceleration Time 180.6 ms TR Peak Velocity 243.5 cm/s TR Peak Gradient 23.7 mmHg Right Atrial Pressure 5.0 mmHg Pulmonary Artery Systolic Pressu 28.7 mmHg Right Ventricular Systolic Press 28.7 mmHg FINDINGS Left Ventricle Left ventricular ejection fraction is estimated at 55-60 %. Mildly increased posterior wall thickness. Left ventricular cavity size normal. No obvious regional wall motion abnormalities. Right Ventricle Normal right ventricular size and function. Right ventricular systolic pressure within normal limits. Right Atrium Normal right atrial size. Left Atrium Normal left atrial size. Mitral Valve Structurally normal mitral valve. No evidence for mitral valve prolapse. No mitral stenosis. Trace mitral regurgitation. Aortic Valve Trileaflet aortic valve. No aortic valve stenosis or regurgitation. Tricuspid Valve Structurally normal tricuspid valve. No tricuspid stenosis. Mild tricuspid regurgitation. Pulmonic Valve Structurally normal pulmonic valve. No pulmonic stenosis. No pulmonic regurgitation. Pericardium No pericardial effusion. Aorta Normal size aortic root and proximal ascending aorta. CONCLUSIONS Reason: Non-Q wave DE Preserved LV size and function without wall motion abnormalities Previewed by: Dr. Carlos Salguero MD (Electronically Signed) Final Date: 25 December 2024 14:22
[2024-12-25 15:06] VITALS: PULSE 55
[2024-12-25 15:12] VITALS: BP 152/80
--- NOTE | 2024-12-25 15:54 | P.DS ---
Providers Date of admission: 12/24/24 18:08 Expected date of discharge: 12/25/24 Attending physician: Burt Agarwal MD Consults: 12/23/24 17:24 Consult Physician Routine Consulting Provider: Mayelin Morgan Consult Reason/Comments: ams Do you want consulting provider notified?: Yes Consult Physician Routine Consulting Provider: Shivam Neely Consult Reason/Comments: nstemi Do you want consulting provider notified?: Yes Primary care physician: Diego Zaragoza Hospital Course: Discharge Diagnosis: NSTEMI Acute metabolic encephalopathy with dizziness/lightheadedness, resolved. Hypertension with hypertensive urgency upon arrival Hyperlipidemia Hospital Course: Patient is a very pleasant 69-year-old female with a reported past medical history of hypertension and hyperlipidemia. She presented to the emergency department on 12/23/2024 after experiencing dizziness/lightheadedness, confusion with some mild chest pressure shortly after returning home. Patient had a very busy/stressful today as her was brought into the hospital as a STEMI and underwent emergent heart cath with stent placement and still needs another stent placed. Upon arrival to our facility, patient underwent evaluation in the emergency department. Vital signs upon arrival show blood pressure 182/92, heart rate 88, respiratory rate 18, temp 98.2 F, and SpO2 of 96% on room air. EKG completed showing normal sinus rhythm at 74 bpm with no significantly noted T wave or ST abnormality showing no signs of acute ischemia upon personal review and interpretation. CT brain negative for acute intracranial process. Labs completed and reviewed. CBC unremarkable. Coagulation profile showing a low PTT of 21.3. BMP showing high anion gap metabolic acidosis with chloride of 108, bicarb of 21, and anion gap of 12. Blood glucose was 99. Liver profile unremarkable. Troponin was elevated at 0.088. Patient was started on IV heparin infusion and admitted under our services with consultation to cardiology. Troponins were trended resulting at 0.088, 0.093, and 0.085. Echocardiogram completed showing a preserved EF of 55 to 60% with no reported valvular or structural abnormalities. Patient was taken for cardiac catheterization which was reported patient to have normal coronary arteries and a preserved EF. Patient was cleared from cardiac perspective for discharge. Patient medically optimized at this time blood pressure is much better controlled. Patient being discharged home on increased dose of losartan 50 mg daily amlodipine 5 mg daily, and metoprolol 12.5 mg twice daily. 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 Physical exam: Vital signs reviewed and stable. General: Nontoxic, no distress and appears stated age. Derm: Skin warm and dry, normal coloration for ethnicity. Head: Atraumatic, normocephalic and symmetric. Eyes: EOM's intact, no lid lag, and anicteric sclera Mouth: no lip lesions, mucus membranes moist Cardiovascular: regular rate and rhythm with normal S1S2, no murmur, positive posterior tibial pulses bilaterally, and cap refill < 2 seconds. Lungs: Respirations even, regular, and unlabored on room air. Lungs CTA bilaterally, no rhonchi, no rales, no wheezing, and no accessory muscle usage. Abdominal: soft, nontender to palpation, no guarding, no appreciable organomegaly Ext: ROM intact. No gross muscle atrophy, no edema, no contractures Neuro: Speech clear, face symmetrical and CN II-XII grossly intact with no noted focal neuro deficits Psych: Alert and oriented to person, place, time, and situation. Appropriate and pleasant affect. A total of 35 minutes of time were spent preparing this complex discharge summary. Pt was discharged on 12/25/2024 at 2:45 PM Patient was seen independently by Nurse Practitioner. This document was prepared using [employer] dictation software. Please allow for errors in college athlete while rare they do occur. Luis Sabillon NP rendered care for this patient independently, reviewed the findings and plan as documented in the note above. I did not physically speak with or examine the patient on this date. Patient Condition at Discharge: Stable Plan - Discharge Summary Discharge Rx Participant: Yes New Discharge Prescriptions: New amLODIPine [Norvasc] 5 mg PO DAILY 30 Days #30 tab Losartan [Cozaar] 50 mg PO DAILY 30 Days #30 tab Metoprolol Tartrate [Lopressor] 12.5 mg PO BID 30 Days #30 tab Continue Rosuvastatin Calcium 5 mg PO DAILY Discontinued Losartan [Cozaar] 25 mg PO DAILY Discharge Medication List Rosuvastatin Calcium 5 mg PO DAILY 12/23/24 [History] Losartan [Cozaar] 50 mg PO DAILY 30 Days #30 tab 12/25/24 [Rx] Metoprolol Tartrate [Lopressor] 12.5 mg PO BID 30 Days #30 tab 12/25/24 [Rx] amLODIPine [Norvasc] 5 mg PO DAILY 30 Days #30 tab 12/25/24 [Rx] Follow up Appointment(s)/Referral(s): Gato Yadav DO [STAFF PHYSICIAN] - 1 Week (Office to call with appointment date and time.) Diego Zaragoza MD [Primary Care Provider] - 1-2 days Patient Instructions/Handouts: *Surgery [facility] - After Heart Catheterization - Public Housing Interviewer Instructions, Heart Attack (IP), Hypertensive Crisis (DC) Activity/Diet/Wound Care/Special Instructions: Activity: As tolerated. Take breaks as needed. It is important to keep a heart healthy lifestyle. This can improve your long- term health and decrease your risk for heart attacks. Managing your blood cholesterol, blood pressure, and stress. The importance of regular exercise. Walking is a great low impact exercise. Diet: Heart healthy and carb consistent diet. Avoid salts, or foods with hidden salts such as canned or boxed foods and frozen dinners. Extra salt makes your heart work harder and traps the fluid in your body for longer. Heart Healty Diets also include eating more plants in your diet. Lots of fruits and vegetables, nuts, beans, legumes, fish, whole grains, plant-based oils. Avoid fried foods and animal fats and processed meats Special Instructions: Statins -A statin medication lowers cholesterol levels in the blood. This helps slow the progression of heart disease. - Please take your statin medication as prescribed by your doctor. -You may be taking one of the following statins: Rosuvastatin Beta Blockers: -Beta augusto, metoprolol is a medication that protects your heart from stress and can prevent future heart attacks. It can slow your heart rate. Do not stop taking these medicines without talking to your doctor. Additionally, your losartan was increased from 25 mg daily up to 50 mg daily and you were started on amlodipine 5 mg daily secondary to hypertensive urgency. It is recommended that you monitor your blood pressure closely at home at least twice daily and document these findings in a daily log to bring with you to your next doctor's appointment. For mild discomfort, you may take plain Tylenol (acetaminophen). Follow dose directions, but do not take more than 4,000 mg of acetaminophen in 24 hours. You will need to follow up with your PCP in 3 days and cardiology in 1 week. Thank you for allowing us to participate in your care, it was truly a pleasure having you for our patient!!! .
[2024-12-26] MEDS ORDERED: ASPIRIN 81 MG PO SCH (09:00)
[2024-12-26] MEDS ORDERED: ATORVASTATIN 40 MG TAB PO SCH (09:00)
== END 2024-12-25 15:50 | disposition home health service (06) | DRG 280 ==
LOC: EC 15:10 → 3SCARD 17:25 → OBSVTOIN 12-24 18:08
PROVIDERS: ADMIT Internal Medicine; ATTEND Internal Medicine
PROC: 4A023N7 Measurement of Cardiac Sampling and Pressure, Left Heart, Percutaneous Approach (ICD-10-PCS; principal; 2024-12-25 10:25)
PROC: B2111ZZ Fluoroscopy of Multiple Coronary Arteries using Low Osmolar Contrast (ICD-10-PCS; principal; 2024-12-25 10:25)
PROC: B2151ZZ Fluoroscopy of Left Heart using Low Osmolar Contrast (ICD-10-PCS; principal; 2024-12-25 10:25)
DX: I21.4 Non-ST elevation (NSTEMI) myocardial infarction (principal); G93.41 Metabolic encephalopathy; I10 Essential (primary) hypertension; G45.4 Transient global amnesia; E87.20 Acidosis, unspecified; F43.9 Reaction to severe stress, unspecified; E78.00 Pure hypercholesterolemia, unspecified; F41.9 Anxiety disorder, unspecified; I16.0 Hypertensive urgency; Z79.82 Long term (current) use of aspirin; Z79.899 Other long term (current) drug therapy; Z88.5 Allergy status to narcotic agent
CPT/HCPCS: 36415; 70450; 71045; 80053; 80061; 80306; 80320; 81001; 82140; 83735; 84100; 84484; 85025; 85027; 85610; 85730; 93005; 93306; 93458; 96361; 96365; 96366; 96375; 99285